=== PATIENT | female | born 1965 | race Caucasian/White ===

== ENCOUNTER → 2021-02-23 14:42 | Outpatient (BNVA) | payer OTHER, SELFPAY | PROVIDERS: PCP Internal Medicine; Visit Provider Orthopaedic Surgery | DX: M17.11 Unilateral primary osteoarthritis, right knee (principal); Z96.652 Presence of left artificial knee joint; Z88.0 Allergy status to penicillin; Z88.2 Allergy status to sulfonamides; Z88.8 Allergy status to other drugs, medicaments and biological substances; Z91.040 Latex allergy status; Z91.011 Allergy to milk products | CPT/HCPCS: 20610; J1100 ==

== ENCOUNTER → 2021-02-26 14:59 | Outpatient (BNVA) | payer OTHER, SELFPAY | PROVIDERS: PCP Internal Medicine; Visit Provider Surgery Vascular Surgery ==

== ENCOUNTER 2021-03-18 12:57 | Outpatient (REF) | payer OTHER, SELFPAY ==
--- NOTE | ~2021-03-18 | US_ITS ---
EXAMINATION: US VENOUS ULTRASOUND WITH DOPPLER LOWER EXTREMITY, BILATERAL CLINICAL INFORMATION: This is a 55-year-old female with venous insufficiency and varicose veins COMPARISON: None. TECHNIQUE: Color flow triplex imaging and compression Doppler was performed to evaluate both the deep and the superficial systems bilaterally. To evaluate the superficial system, the examination was performed in the upright position. Color-flow Doppler ultrasound and compression ultrasound were utilized. In addition, maneuvers were utilized to demonstrate reflux. FINDINGS: 1. DEEP VENOUS ULTRASOUND OF THE RIGHT LOWER EXTREMITY: Common Femoral Vein: Compressible, normal respiratory variation and augmented flow. Femoral vein: Compressible, normal color flow and augmentation. Popliteal Vein: Compressible, normal augmentation. Deep Reflux: There is no evidence of reflux in the deep system in either the common femoral vein or the popliteal vein. . There is no evidence of a Solares's cyst. 2. SUPERFICIAL ULTRASOUND WITH DOPPLER OF RIGHT LOWER EXTREMITY GREAT SAPHENOUS VEIN: Saphenofemoral junction: 1.2 cm. The reflux time is 1848 ms per Mid thigh: 0.4 cm. There is no reflux. Above knee: 0.3 cm. There is no reflux. Below knee: 0.4 cm. The reflux time is 1532 ms Mid calf: 0.3 cm. There is no reflux. Ankle: 0.3 cm. There is no reflux. GSV REFLUX: There is reflux seen at the saphenofemoral junction. DUPLICATED GREAT SAPHENOUS VEIN: There is a duplicated lateral great saphenous vein measuring 1.5 cm at the junction with the reflux time of 1948 ms. At the mid thigh measures 0.3 cm without reflux. SMALL SAPHENOUS VEIN: Upper: 0.4 cm Lower: 0.3 cm SSV REFLUX: No evidence of reflux. VEIN OF GIACOMINI: None Imaged. PERFORATORS: There are 0.3 cm distal thigh branch associate teller without reflux VARICOSITIES: There is 0.9 cm anterior varicose veins with 908 ms of reflux. There are 0.4 cm varicose veins in the proximal thigh without reflux. There is 0.4 cm proximal calf varicose veins with reflux time of 2152 ms. 3. DEEP VENOUS ULTRASOUND OF THE LEFT LOWER EXTREMITY: Common Femoral Vein: There is a patent common femoral vein with deep reflux of 1003 to 60 milliseconds. Femoral vein: Compressible, normal color flow and augmentation. Popliteal Vein: Compressible, normal augmentation. Deep Reflux: There is reflux in the common femoral vein but not below. There is no evidence of a Solares's cyst. 4. SUPERFICIAL ULTRASOUND WITH DOPPLER OF LEFT LOWER EXTREMITY GREAT SAPHENOUS VEIN: Saphenofemoral junction: 1.0 cm. The reflux time is 2708 ms. Mid thigh: 0.5 cm. There is no reflux. Above knee: 0.4 cm. There is no reflux. Below knee: 0.2 cm. There is no reflux. Mid calf: 0.3 cm. The reflux time is 1460 ms Ankle: 0.2 cm. The reflux time is 564 ms GSV REFLUX: No evidence of reflux. DUPLICATED GREAT SAPHENOUS VEIN: None SMALL SAPHENOUS VEIN: Upper: 0.1 cm Lower: 0.4 cm SSV REFLUX: There is a short segment of mid calf reflux but not at the junction. VEIN OF GIACOMINI: None Imaged. PERFORATORS: There are 0.3 and 0.4 cm perforators present without reflux. VARICOSITIES: There is a 1.7 cm anterior lateral thigh varicose vein with reflux of 2400 ms. There are 0.4 cm distal thigh varicose veins without reflux. There are 0.4 cm varicose veins in the mid calf without reflux. US/US venous duplex LE BI IMPRESSION: 1. There is a patent right great saphenous vein with reflux at the saphenofemoral junction. 2. There is a duplicated right lateral great saphenous vein measure 1.5 cm with reflux at the junction. 3. There is a patent right small saphenous vein without reflux. 4. There are varicose veins in the right leg with reflux. 5. There is a patent left great saphenous vein with reflux at the saphenofemoral junction. 6. There is a patent left small saphenous vein without reflux at the junction. 7. There are varicose veins in the left leg with reflux.
== END 2021-03-18 12:58 | disposition home or self-care (01) ==
LOC: HO.US 12:57
PROVIDERS: PCP Internal Medicine; Visit Provider Surgery Vascular Surgery
DX: I83.893 Varicose veins of bilateral lower extremities with other complications (principal)
CPT/HCPCS: 93970

== ENCOUNTER → 2021-03-24 15:32 | Outpatient (BNVA) | payer OTHER, SELFPAY | PROVIDERS: PCP Internal Medicine; Visit Provider Surgery Vascular Surgery ==

== ENCOUNTER → 2021-05-01 07:27 | Outpatient (BNVA) | payer OTHER, SELFPAY | PROVIDERS: PCP Internal Medicine; Visit Provider Surgery Vascular Surgery | DX: I83.12 Varicose veins of left lower extremity with inflammation (principal) | CPT/HCPCS: 36475 ==

== ENCOUNTER 2021-05-04 10:24 | Outpatient (REF) | payer OTHER, SELFPAY ==
--- NOTE | ~2021-05-04 | US_ITS ---
EXAMINATION: US VENOUS ULTRASOUND WITH DOPPLER LOWER EXTREMITY, LEFT CLINICAL INFORMATION: Status post left RFA, rule out DVT COMPARISON: None TECHNIQUE: Ultrasound of the deep veins is performed from the hip to the calf with compression sonography and color and pulse Doppler assessment. Spectral analysis with color-flow imaging is performed. FINDINGS: There is normal venous compression and respiratory variation and augmented flow. The visualized common femoral vein, superficial femoral vein, profunda femoral vein, popliteal vein, and the trifurcation region shows no evidence of deep venous thrombosis. There is no significant popliteal fossa cyst. While the saphenofemoral junction is patent there is possible hypoechoic thrombus centrally within the great saphenous vein approximately 1.5 cm from its confluence with the common femoral. If the patient's symptoms persist, followup ultrasound in 5 days 7 days might be of value to exclude proximal propagation from a non-visualized calf vein. US/US venous duplex LE LT IMPRESSION: No DVT demonstrated in the left lower extremity. Possible hypoechoic thrombus within the great saphenous vein.
== END 2021-05-04 10:25 | disposition home or self-care (01) ==
LOC: HO.US 10:24
PROVIDERS: PCP Internal Medicine; Visit Provider Surgery Vascular Surgery
DX: M79.605 Pain in left leg (principal)
CPT/HCPCS: 93971

== ENCOUNTER → 2021-05-06 10:53 | Outpatient (BNVA) | payer OTHER, SELFPAY | PROVIDERS: PCP Internal Medicine; Visit Provider Surgery Vascular Surgery ==

== ENCOUNTER → 2021-05-18 14:31 | Outpatient (BNVA) | payer OTHER, SELFPAY | PROVIDERS: Visit Provider Orthopaedic Surgery ==

== ENCOUNTER → 2021-05-21 15:29 | Outpatient (BNVA) | payer OTHER, SELFPAY | PROVIDERS: PCP Internal Medicine; Visit Provider Surgery Vascular Surgery ==

== ENCOUNTER 2021-06-15 09:33 | Day surgery (SDC) | payer OTHER, SELFPAY ==
[2021-06-08 13:49] VITALS: BMI 38.7
[2021-06-15] VITALS (7 sets, daily range): BP systolic 128–154; BP diastolic 74–89; PULSE 67–86; RESP 12–17; TEMP 36.1–36.7; O2SAT 93–100
--- NOTE | 2021-06-15 07:33 | MHC.SHP ---
Pre-Procedural Eval Section A Date of Service: 06/15/21 The patient is an INPATIENT: No The History & Physical has been completed within 30 days and I have reviewed it.: Yes Section B Chief Complaint: varicose veins of left lower extremity Allergies: Allergies Allergy/AdvReac Type Severity Reaction Status Date / Time Influenza Virus Vaccines Allergy Severe Hives Verified 06/08/21 13:48 latex [LATEX] Allergy Intermediate RASH Verified 05/21/21 15:42 Penicillins [PENICILLINS] Allergy Intermediate RASH Verified 05/21/21 15:42 Sulfa (Sulfonamide Allergy Intermediate RASH, hives Verified 05/21/21 15:42 Antibiotics) [SULFA (SULFONAMIDE ANTIBIOTICS)] sulfite Allergy Intermediate Hives Verified 06/08/21 13:44 epinephrine [EPINEPHRINE] AdvReac Intermediate w/novacaine Verified 06/08/21 13:44 (for dental work)-vomiting lactose AdvReac Intermediate sinus Verified 06/08/21 13:44 infection Plan I have reviewed the history and physical and performed a pertinent physical examination on my patient. No changes have occurred unless specified.
--- NOTE | 2021-06-15 08:52 | P.CONAN_ITS ---
[facility] Active Problems Active Problems: All Active Problems (Updated 06/08/21 @ 13:47 by Urmila zamorano RN) Anaphylaxis (Acute) Immunization counseling (Acute) Arthritis of right knee (Acute) Varicose veins of left lower extremity with inflammation (Acute) Past Medical History Medical History Anesthesia complication Arthritis COVID-19 vaccine series completed GERD (gastroesophageal reflux disease) HTN (hypertension) Surgical History Surgical History History of esophagogastroduodenoscopy (EGD) History of hysterectomy History of left knee replacement Hx laparoscopic cholecystectomy History of Problems with Anesthesia: No Social History Social History Are you a primary neonatal critical care nurse to a significant other at home: No Do you presently have visiting nurse or other home services: No Patient Tobacco Use Status: Former Tobacco user Quit Date: 1984 Tobacco use type: Cigarette Use of substances other than those prescribed or required for medical reasons: No Have you been hit, kicked, punched, or otherwise hurt by someone within the past year? If so, by whom?: No Are you DNR?: No Advance Directives: No Advance Directives Information Provided: Yes (informational brochure mailed) Advance Directives on File: No Recently lost weight without trying: No Eating poorly because of decreased appetite: No Nutrition Risks: No Nutritional Risk Patient : No FDLMP: N/A Poor oral hygiene: No Current occupational status: employed Current occupation: rt handed Meds Allergies Allergy/AdvReac Type Severity Reaction Status Date / Time Influenza Virus Vaccines Allergy Severe Hives Verified 06/15/21 11:05 latex [LATEX] Allergy Intermediate RASH Verified 06/15/21 11:05 Penicillins [PENICILLINS] Allergy Intermediate RASH Verified 06/15/21 11:05 Sulfa (Sulfonamide Allergy Intermediate RASH, hives Verified 06/15/21 11:05 Antibiotics) [SULFA (SULFONAMIDE ANTIBIOTICS)] sulfite Allergy Intermediate Hives Verified 06/15/21 11:05 epinephrine [EPINEPHRINE] AdvReac Intermediate w/novacaine Verified 06/15/21 11:05 (for dental work)-vomiting lactose AdvReac Intermediate sinus Verified 06/15/21 11:05 infection Active Medications: Current Medications Lactated Ringer's (Lr) 1,000 mls @ 50 mls/hr IVCONT .Q20H JAMIE Home Medications Medication Instructions Recorded Confirmed Last Taken Type cetirizine 5 mg tablet 5 mg PO DAILY 06/08/21 06/08/21 Unknown History multivitamin 1 tab PO DAILY 06/08/21 06/08/21 Unknown History Exam Exam Date and Time: June 15, 2021 0852 Height,Weight and Vital Signs: Height 5 ft 5 in Weight 105.687 kg Airway Mallampati Class: II TM Dist: >3cm Neck ROM: Full Loose/Missing/Broken Teeth: No Heart: RRR Lungs: CTA Assessment and Plan Assessment Anesthesia Assessment: Anesthesia Plan Discussed and Chart Reviewed Final Anesthetic Review History of Problems with Anesthesia: No NPO: Yes ASA Class: II Final Preanesthetic Review: Meds/Allgs Chart Reviewed, Consent Obtained/Reviewed and Anes Risks/Benef Reviewed Patient Risk: Low Procedure Risk: Low Anesthetic Plan Anesthetic Plan: GA Disposition: Standard PACU
[2021-06-15] MEDS: Lactated Ringers 1,000 ML 50 ML IVCONT (10:55)
[2021-06-15] MEDS: vancomycin HCL 1,500 MG in 0.9 % Sodium Chloride 500 ML 333.33 MG IV (10:57)
--- NOTE | 2021-06-15 12:53 | P.OP_ITS ---
Operative Note Operative Note Date of Service: 06/15/21 Narrative: Diagnosis: Left Leg varicose veins with inflammation Procedure: 1. Left leg Microphlebectomy (27) 2. Ligation of left leg venous cluster Surgeon: Tony Gardner M.D. Anesthesia: General Specimen: 1 Drains: 0 Estimated blood loss: 100 ml Varicose veins were marked in the standing position on the left leg and the patient was then placed in the supine position. The left lower extremity was prepared and draped to allow knee flexion in the sterile field. The patient had large superficial varicose veins with significant symptoms of pain. It was therefore determined to perform microphlebectomies of the clusters of varicose veins. The patient had bulging varicose veins which were previously marked in the standing position. A small stab incision was made longitudinally directly overlying the varicose vein in the calf and the varicose vein was grasped with a hemostat aided by a vein hook. It was then dissected as far proximally and distally as possible and avulsed. A total of 27 stab incisions were made and the procedure of stab phlebectomies was repeated 27 times. There was a large cluster of varicosities in the anterior aspect of the thigh. The base was identified and ligated with a 2 0 poly Sorb suture. Residual varicosities were removed. Hemostasis was checked and stab incision sites were closed with steri-strips and sterile dressing was given with gauze and krilex wrap followed by an fabio ba ndage. There were no complications and blood loss was minimal. Post-Op instructions were given and a follow-up appointment was recommended.
[2021-06-15] MEDS: Acetaminophen 325 MG TABLET 650 MG PO (14:02)
== END 2021-06-15 14:53 | disposition home or self-care (01) ==
PROVIDERS: PCP Internal Medicine; Visit Provider Surgery Vascular Surgery
PROC: (CPT 37766; principal; 2021-06-15 11:20)
DX: I83.12 Varicose veins of left lower extremity with inflammation (principal); M79.89 Other specified soft tissue disorders; I10 Essential (primary) hypertension; K21.9 Gastro-esophageal reflux disease without esophagitis; Z91.040 Latex allergy status; Z88.0 Allergy status to penicillin; Z88.2 Allergy status to sulfonamides
CPT/HCPCS: 37766; 37785; 88304; J1100; J2250; J2405; J3010; J3370

== ENCOUNTER → 2021-06-30 09:17 | Outpatient (BNVA) | payer OTHER, SELFPAY | PROVIDERS: PCP Internal Medicine; Visit Provider Surgery Vascular Surgery ==

== ENCOUNTER → 2021-07-06 14:44 | Outpatient (BNVA) | payer OTHER, SELFPAY | PROVIDERS: Visit Provider Orthopaedic Surgery | DX: M17.11 Unilateral primary osteoarthritis, right knee (principal) | CPT/HCPCS: 20610; J1100 ==

== ENCOUNTER → 2021-12-03 15:39 | Outpatient (BNVA) | payer OTHER, SELFPAY | PROVIDERS: PCP Obstetrics & Gynecology; Visit Provider Orthopaedic Surgery | DX: Z01.818 Encounter for other preprocedural examination (principal); M17.11 Unilateral primary osteoarthritis, right knee | CPT/HCPCS: 20610; J1100 ==

== ENCOUNTER 2022-05-20 12:33 | Outpatient (REF) | payer OTHER, SELFPAY ==
--- NOTE | ~2022-05-20 | XR_ITS ---
EXAMINATION: XR KNEE, RIGHT XR KNEE AP STANDING, BILATERAL CLINICAL INFORMATION: Pain. COMPARISON: 08/03/2019. TECHNIQUE: AP standing view of both knees. [place] and lateral views of the right knee. FINDINGS: AP standing view of both knees demonstrates severe degenerative change of the medial joint space compartment of the right knee with some marginal sclerosis. Patient is status post medial joint space hemiarthroplasty of the left knee. AP and sunrise views of the right knee demonstrate severe degenerative change of the patellofemoral joint with loss of joint space and marginal spurring and sclerosis. There is a small right knee effusion. XR/XR knee RT 2V IMPRESSION: Severe medial joint space degenerative change and patellofemoral joint degenerative change with small right knee effusion.
--- NOTE | ~2022-05-20 | XR_ITS ---
EXAMINATION: XR KNEE, RIGHT XR KNEE AP STANDING, BILATERAL CLINICAL INFORMATION: Pain. COMPARISON: 08/03/2019. TECHNIQUE: AP standing view of both knees. [place] and lateral views of the right knee. FINDINGS: AP standing view of both knees demonstrates severe degenerative change of the medial joint space compartment of the right knee with some marginal sclerosis. Patient is status post medial joint space hemiarthroplasty of the left knee. AP and sunrise views of the right knee demonstrate severe degenerative change of the patellofemoral joint with loss of joint space and marginal spurring and sclerosis. There is a small right knee effusion. XR/XR knee standing BI IMPRESSION: Severe medial joint space degenerative change and patellofemoral joint degenerative change with small right knee effusion.
== END 2022-05-20 12:34 | disposition home or self-care (01) ==
LOC: HO.HOSX 12:33
PROVIDERS: Visit Provider Physician Assistant
DX: M25.561 Pain in right knee (principal); M25.562 Pain in left knee
CPT/HCPCS: 73560; 73565

== ENCOUNTER 2022-05-25 06:07 | Inpatient (IN) | payer OTHER, SELFPAY ==
[2022-05-18 12:10] VITALS: BP 137/89; PULSE 92; RESP 20; O2SAT 98; BMI 39.5
--- NOTE | 2022-05-18 12:22 | HO.ANESPROP2 ---
Documented by User: Karen Moulton NP 05/18/22 12:47 HPI - Anesthesia Eval Consult details Narrative: 56yo F for Right Knee Replacement Total PCP cleared Declines spinal. Discussed spinal vs GA, and block PMFSH Active Problems Active Problems: All Active Problems (Updated 05/18/22 @ 12:21 by Borok Clark RN) Anaphylaxis (Acute) Immunization counseling (Acute) Arthritis of right knee (Acute) Varicose veins of left lower extremity with inflammation (Acute) Varicose veins of right lower extremity with inflammation (Acute) Past Medical History Medical History Anesthesia complication Arthritis COVID-19 vaccine series completed GERD (gastroesophageal reflux disease) HTN (hypertension) Migraines Obesity Family History Family history of problems with anesthesia: No Surgical History Surgical History H/O vein stripping (06/15/21) History of esophagogastroduodenoscopy (EGD) History of hysterectomy History of left knee replacement Hx laparoscopic cholecystectomy History of Problems with Anesthesia: Yes (Pt reports apnea after EGD and owen. No problems after phlebectomy with GA 06/2021) Social History Social History Household Members: Significant Other and Family Housing: House Are you a primary daycare teacher to a significant other at home: No Do you presently have visiting nurse or other home services: No Patient Tobacco Use Status: Former Tobacco user Quit Date: 1985 Tobacco use type: Cigarette Second Hand Smoke Exposure: No Use of substances other than those prescribed or required for medical reasons: No Currently Displaying Signs/Symptoms of Drug Intoxication Withdrawal: No Have you been hit, kicked, punched, or otherwise hurt by someone within the past year? If so, by whom?: No Do you feel safe in your current relationship?: Yes Is there a partner from a previous relationship who is making you feel unsafe now?: No Are you made to feel afraid or neglected: No Are you DNR?: No Advance Directives: No Advance Directives Information Provided: Yes (Yes to fill out and bring DOS) Advance Directives on File: No Do you have thoughts of harming others: None Do you have a plan to hurt others: No Plan Recently lost weight without trying: No Eating poorly because of decreased appetite: No Nutrition Risks: No Nutritional Risk Patient : No FDLMP: Hysterectomy : No Poor oral hygiene: No Current occupational status: employed Current occupation: rt handed Narrative Narrative: No recent illness No CP/SOB within limits of knee pain Meds Allergies Allergy/AdvReac Type Severity Reaction Status Date / Time Influenza Virus Vaccines Allergy Severe Hives Verified 05/20/22 13:29 latex [LATEX] Allergy Intermediate RASH Verified 05/20/22 13:29 Penicillins [PENICILLINS] Allergy Intermediate RASH Verified 05/20/22 13:29 Sulfa (Sulfonamide Allergy Intermediate RASH, hives Verified 05/20/22 13:29 Antibiotics) [SULFA (SULFONAMIDE ANTIBIOTICS)] sulfite Allergy Intermediate Hives Verified 05/20/22 13:29 epinephrine [EPINEPHRINE] AdvReac Intermediate w/novacaine Verified 05/20/22 13:29 (for dental work)-vomiting lactose AdvReac Intermediate sinus Verified 05/20/22 13:29 infection Home Medications Medication Instructions Recorded Confirmed Last Taken Type multivitamin 1 tab PO DAILY 06/08/21 05/18/22 05/18/22 History cetirizine 5 mg tablet 5 mg PO DAILY 05/18/22 05/18/22 05/24/22 History Exam Exam Date and Time: May 18, 2022 1222 Height,Weight and Vital Signs: Height 5 ft 4.5 in Weight 106.141 kg Last Vital Signs Pulse 92 05/18/22 12:10 Resp 20 05/18/22 12:10 BP 137/89 05/18/22 12:10 Pulse Ox 98 05/18/22 12:10 O2 Del Method 05/18/22 12:10 Pertinent Lab Results Pertinent Lab Results: LABS from outside facility WNL 05/2022 Narrative Narrative: EKG 05/2022 NSR Airway Mallampati Class: I TM Dist: >3cm Neck ROM: Full Loose/Missing/Broken Teeth: No (Capped front upper #9) Heart: RRR Lungs: CTAB Assessment and Plan Assessment Anesthesia Assessment: Anesthesia Plan Discussed and PAT Visit Final Anesthetic Review Family History of Problems with Anesthesia: No History of Problems with Anesthesia: Yes (Pt reports apnea after EGD and owen. No problems after phlebectomy with GA 06/2021) Documented by User: Bib Dewitt MD 05/25/22 17:48 HPI - Anesthesia Eval Consult details Narrative: 56yo F for Right Knee Replacement [facility] Past Medical History Medical History Anesthesia complication Arthritis COVID-19 vaccine series completed GERD (gastroesophageal reflux disease) HTN (hypertension) Migraines Obesity Surgical History Surgical History H/O vein stripping (06/15/21) History of esophagogastroduodenoscopy (EGD) History of hysterectomy History of left knee replacement Hx laparoscopic cholecystectomy Social History Social History Household Members: Significant Other and Family Housing: House Are you a primary daycare teacher to a significant other at home: No Do you presently have visiting nurse or other home services: No Patient Tobacco Use Status: Former Tobacco user Quit Date: 1985 Tobacco use type: Cigarette Second Hand Smoke Exposure: No Use of substances other than those prescribed or required for medical reasons: No Currently Displaying Signs/Symptoms of Drug Intoxication Withdrawal: No Have you been hit, kicked, punched, or otherwise hurt by someone within the past year? If so, by whom?: No Do you feel safe in your current relationship?: Yes Is there a partner from a previous relationship who is making you feel unsafe now?: No Are you made to feel afraid or neglected: No Are you DNR?: No Advance Directives: No Advance Directives Information Provided: Yes (Yes to fill out and bring DOS) Advance Directives on File: No Do you have thoughts of harming others: None Do you have a plan to hurt others: No Plan Recently lost weight without trying: No Eating poorly because of decreased appetite: No Nutrition Risks: No Nutritional Risk Patient : No FDLMP: Hysterectomy : No Poor oral hygiene: No Current occupational status: employed Current occupation: rt handed Meds Allergies Allergy/AdvReac Type Severity Reaction Status Date / Time Influenza Virus Vaccines Allergy Severe Hives Verified 05/20/22 13:29 latex [LATEX] Allergy Intermediate RASH Verified 05/20/22 13:29 Penicillins [PENICILLINS] Allergy Intermediate RASH Verified 05/20/22 13:29 Sulfa (Sulfonamide Allergy Intermediate RASH, hives Verified 05/20/22 13:29 Antibiotics) [SULFA (SULFONAMIDE ANTIBIOTICS)] sulfite Allergy Intermediate Hives Verified 05/20/22 13:29 epinephrine [EPINEPHRINE] AdvReac Intermediate w/novacaine Verified 05/20/22 13:29 (for dental work)-vomiting lactose AdvReac Intermediate sinus Verified 05/20/22 13:29 infection Home Medications Medication Instructions Recorded Confirmed Last Taken Type multivitamin 1 tab PO DAILY 06/08/21 05/18/22 05/18/22 History cetirizine 5 mg tablet 5 mg PO DAILY 05/18/22 05/18/22 05/24/22 History Exam Airway Loose/Missing/Broken Teeth: Yes (Capped front upper #9) Assessment and Plan Assessment Anesthesia Assessment: Chart Reviewed Final Anesthetic Review NPO: Yes ASA Class: III Final Preanesthetic Review: Meds/Allgs Chart Reviewed, Consent Obtained/Reviewed and Anes Risks/Benef Reviewed Patient Risk: Intermediate Procedure Risk: Intermediate Anesthetic Plan Anesthetic Plan: Spinal and Regional Block Disposition: Standard PACU
[2022-05-18 16:41] LABS: MRSA Nasal PCR NEGATIVE (Negative); SA Nasal PCR NEGATIVE (Negative)
[2022-05-25] VITALS (13 sets, daily range): BP systolic 119–142; BP diastolic 63–93; PULSE 59–92; RESP 13–19; TEMP 36–36.7; O2SAT 94–99; BMI 42.7
--- NOTE | ~2022-05-25 | XR_ITS ---
EXAMINATION: XR KNEE, RIGHT CLINICAL INFORMATION: Status post right knee TKA. COMPARISON: None TECHNIQUE: Four views of the right knee. FINDINGS: The patient is status post right knee arthroplasty showing good anatomic alignment and no evidence for hardware malfunction. Mild intra-articular and subcutaneous soft tissue air is noted. Multilevel anterior skin clips are noted. Incidental varices are seen laterally. XR/XR knee RT 2V IMPRESSION: Postoperative changes. No hardware abnormality.
[2022-05-25 06:31] LABS: COVID-19 Test Negative (Negative)
[2022-05-25 06:47] LABS: Hematocrit 39.4 % (37.0-47.0); Hemoglobin 13.5 g/dl (12.0-16.0)
--- NOTE | 2022-05-25 06:49 | ECG_ITS ---
Test Reason : preop Blood Pressure : / mmHG Vent. 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
[2022-05-25] MEDS: Lactated Ringers 1,000 ML 100 ML IVCONT ×4 (07:08→19:48)
--- NOTE | 2022-05-25 07:13 | PHA.MEDREC ---
Pharmacy Consult ? Medication Reconciliation Pharmacy has completed the medication reconciliation. Reviewed med rec done by nursing
--- NOTE | 2022-05-25 07:33 | MHC.SHP ---
Pre-Procedural Eval Section A Date of Service: 05/25/22 The patient is an INPATIENT: No Changes since office visit: Yes Patient answered all questions; No Cold of Flu in the past 2 weeks, No New Medical Problems and No Changes in Medication The History & Physical has been completed within 30 days and I have reviewed it.: Yes Section B Chief Complaint: Unilateral primary osteoarthritis, right knee Allergies: Allergies Allergy/AdvReac Type Severity Reaction Status Date / Time Influenza Virus Vaccines Allergy Severe Hives Verified 05/20/22 13:29 latex [LATEX] Allergy Intermediate RASH Verified 05/20/22 13:29 Penicillins [PENICILLINS] Allergy Intermediate RASH Verified 05/20/22 13:29 Sulfa (Sulfonamide Allergy Intermediate RASH, hives Verified 05/20/22 13:29 Antibiotics) [SULFA (SULFONAMIDE ANTIBIOTICS)] sulfite Allergy Intermediate Hives Verified 05/20/22 13:29 epinephrine [EPINEPHRINE] AdvReac Intermediate w/novacaine Verified 05/20/22 13:29 (for dental work)-vomiting lactose AdvReac Intermediate sinus Verified 05/20/22 13:29 infection Plan I have reviewed the history and physical and performed a pertinent physical examination on my patient. No changes have occurred unless specified.
--- NOTE | 2022-05-25 09:08 | P.BOP_ITS ---
Brief Operative Note Date of Service: 05/25/22 Pre-op diagnosis: right knee OA Post-op diagnosis: same Procedure: Right TKA Implants: Carolyne Triathalon cruciate retaining posterior stabilized Surgeon: Aurelio Correa MD Anesthesia: regional and spinal Was an Autistic Teacher used for this Procedure?: Yes Autistic Teacher: Digna Harrison Estimated blood loss (mL): 150 IV fluids (mL): 1,000 Pathology: other Condition: stable Disposition: PACU
--- NOTE | 2022-05-25 09:10 | P.OP_ITS ---
Operative Note Operative Note Date of Service: 05/25/22 Narrative: Date of Service: 05/25/22 Pre-op diagnosis: right knee OA Post-op diagnosis: same Procedure: Right TKA Implants: [place] Triathalon cruciate retaining posterior stabilized r/a Surgeon: Aurelio Correa MD Anesthesia: regional and spinal Was an Wastewater Treatment Plant Operator used for this Procedure?: Yes Wastewater Treatment Plant Operator: Digna Harrison Estimated blood loss (mL): 150 IV fluids (mL): 1,000 Pathology: other Condition: stable Disposition: PACU Procedure in detail: The patient was brought to the operating room and prepped and draped in standard sterile fashion. A time-out was called to identify proper site proper procedure proper surgeon and IV antibiotics were administered. 1 g of IV tranexamic acid was administered. I began by making a midline incision to the retinaculum and performed a medial parapatellar arthrotomy. The patella was translated laterally and the knee was flexed up.The medial compartment was eburnated and the patella was defromed . I performed a small medial peel and resected the infrapatellar fat pad. Keota's line was then used to drill my intramedullary femoral guide and my distal femur cut of 12 mm (10 deg flexion contracture) was made in 5 degrees of valgus while protecting the soft tissues. I then measured a # 3 femur and placed my cutting guide and made my anterior posterior and chamfer cuts protecting the soft tissues at all times. Once I was satisfied with my cuts I turned my attention to the tibia. I removed the meniscus medially and laterally and , using an external cutting guide, in line with the tibial crest and the third ray, I made my distal tibial cut in 3 deg slope of while protecting the PCL the posterior soft tissues at all times. An extension block was used to confirm appropriate amount of bony resection. I then sized a #3 tibia and once I was satisfied that there was complete tibial coverage I placed my trial and with the trial femur in place took the knee through range of motion. I was satisfied with the extension and flexion as well as the stability and balance at 0, 30 and 90 degrees. I then turned my attention to the patella where I removed 1 cm from the undersurface of the patella and then trialed a 29a patellar button. Again the knee was taken t hrough range of motion I was satisfied with the tracking. I then returned to the femur and drilled my femoral lug holes and prepared the tibia. A femoral bone plug was placed and the knee was irrigated copiously. I then press fit the patella, tibia and femur in standard fashion. I trialed different inserts until I selected a #9 insert. The final insert was placed and a 3 minutes iodine soak with local TXA was performed. A Werewolf cautery wand was used to maintain hemostasis over the capsule and meniscal beds, the gutters and peripatellar soft tissues. The knee was then closed with a running Quill suture, a 3 0 Vicryl and leatha on the skin. Patient was then placed in sterile dressing and brought to recovery room in stable condition there were no known complications.
[2022-05-25] MEDS: ceFAZolin Sodium/Dextrose,Iso 2 GM/50 ML PIGGYBACK IV (13:27)
[2022-05-25] MEDS: HYDROmorphone HCl 0.5 MG/0.5 ML SYRINGE 0.25 MG IVPUSH ×2 (13:28→17:32)
[2022-05-25] MEDS: oxyCODONE HCl Immed Release 5 MG TABLET PO (15:10)
[2022-05-25] MEDS: oxyCODONE HCl ER 10 MG TAB.ER.12H 20 MG PO (21:02)
[2022-05-25] MEDS: Docusate Sodium 100 MG CAPSULE PO (21:02)
[2022-05-25] MEDS: Acetaminophen 325 MG TABLET 650 MG PO (23:10)
[2022-05-26] VITALS (7 sets, daily range): BP systolic 117–154; BP diastolic 57–81; PULSE 69–89; RESP 18; TEMP 36.4–37.1; O2SAT 97–100
[2022-05-26] MEDS: oxyCODONE HCl Immed Release 5 MG TABLET PO (03:56)
--- NOTE | 2022-05-26 03:56 | PC.NURSE ---
2114; Patient refused bedtime celebrex due to allergy to sulfas. Patient only took 10 mg instead of 20 mg scheduled oxycontin at bedtime. SOLOMON Cruz notified with [employer]
[2022-05-26] MEDS: Lactated Ringers 1,000 ML 100 ML IVCONT (03:57)
[2022-05-26 05:58] LABS: MANUAL DIFF FLAG NO
[2022-05-26 06:05] LABS: Basophils Percent Auto 0.1 % (0-2); Eosinophils Percent Auto 0.1 % (0-4); Hematocrit 32.2 % (37.0-47.0); Hemoglobin 10.9 g/dl (12.0-16.0); Imm Gran Abs Auto 0.04 X10*3/uL (0.00-0.03); Imm Gran Pct Auto 0.4 % (0.0-0.4); Lymphocytes Absolute Auto 1.7 X10*3/uL (1.2-4.9); Lymphocytes Percent Auto 16.9 % (20-40); Mean Corpuscular HGB Conc 33.9 g/dl (31.0-35.0); Mean Corpuscular Hemoglobin 31.2 pg (27.0-33.0); Mean Corpuscular Volume 92.3 fL (80.0-98.0); Monocytes Absolute Auto 1.2 X10*3/uL (0.1-1.2); Monocytes Percent Auto 11.8 % (2-11); Neutrophils Absolute Auto 7.1 x10*3/uL (2.0-8.3); Neutrophils Percent Auto 70.7 % (45-73); Platelet Count 204 X10*3/uL (160-400); Red Blood Count 3.49 X10*6/uL (4.20-5.50); Red Cell Distribution Width 13.1 % (11.0-16.0); White Blood Count 10.1 X10*3/uL (4.8-10.8)
[2022-05-26 06:17] LABS: Anion Gap 13 (12-20); Blood Urea Nitrogen 11 mg/dL (9-16); Calcium 8.5 mg/dL (8.4-10.2); Carbon Dioxide 26 mmol/L (22-29); Chloride 102 mmol/L (96-108); Estimated Glomerular Filt Rate > 60; Glucose Fasting 131 mg/dL (60-99); Sodium 137 mmol/L (135-145)
--- NOTE | 2022-05-26 07:17 | MHC.CM.PN ---
PATIENT CURRENTLY WORKING WITH PHYXSICAL THERAPIST. PER REVIEW OF EVALUATION, PATIENT WILL BENEFIT FROM HOME P.T. SERVICES. [facility] INSURANCE REFERRAL TO [facility]
[2022-05-26] MEDS: Acetaminophen 325 MG TABLET 650 MG PO ×2 (07:19→15:52)
--- NOTE | 2022-05-26 08:21 | MHC.CM.PN ---
PATIENT LIVES WITH SIGNIFICANT OTHER AND HER DAUGHTER. SHE IS COVID VAX X 4. INDEPENDENT WITH ALL ADLS. PLAN IS HOME WITH [facility] SERVICES
--- NOTE | 2022-05-26 09:36 | P.PNOP_ITS ---
Subjective Subjective Date of Service: 05/26/22 Interval history: POD 1 s/p RT TKA no overnight events has some pain with walking and nauseau with medication denies sob, palpitations, cp Physical Exam Vital Signs: Vital Signs: Last Vital Signs Temp 98.4 F 05/26/22 07:56 Pulse 76 05/26/22 07:56 Resp 18 05/26/22 07:56 BP 148/81 H 05/26/22 07:56 Pulse Ox 99 05/26/22 07:56 O2 Del Method 05/26/22 07:56 O2 Flow Rate 2 05/25/22 11:04 BMI result Body Mass Index 42.7 Const: General: cooperative, healthy appearing and no acute distress Resp: Effort & Inspection: normal respiratory effort and able to speak in complete sentences Cardio: Rate: regular rate Peripheral pulses: Peripheral pulses 2+ throughout GI: Palpation (GI): Soft to palpation Skin: General skin exam: no rashes or lesions noted Extrem: Other: incision clean dry and intact. [place] intact. No erythema or effusion. Calf supple nontender. Neurovascularly intact. Procedures Date of Service Date of Service: 05/26/22 Progress Note: A&P Assessment and plan (1) History of total right knee replacement: Status: Acute Assessment and Plan: * Continue pain mgmnt * Begin Lovenox for dvt ppx * begin PT for RT TKA * Dispo planning-Pending PT eval, pain mgmnt Time Spent With Patient Time: Total time spent is greater than 50% in coordination of care (as documented) at patient's floor/unit and/or counseling patient: Quality Stroke Does the patient have a stroke diagnosis?: No VTE Prior VTE?: No VTE Risk Level:: Surgical - very high VTE Device Contraindication: N/A - Device Ordered VTE Drug Contraindication: N/A - Med Ordered
[2022-05-26] MEDS: Docusate Sodium 100 MG CAPSULE PO ×2 (10:57→21:10)
[2022-05-26] MEDS: oxyCODONE HCl ER 10 MG TAB.ER.12H PO ×2 (10:57→21:11)
[2022-05-26] MEDS: Enoxaparin Sodium 40 MG/0.4 ML SYRINGE SUBCUT (10:58)
--- NOTE | 2022-05-26 11:54 | MHC.CM.PN ---
Addendum entered by Rachel Simmons RN 05/27/22 09:24: [facility] Original Note: [facility] WITH STAFF SHORTAGE. [facility] IS REVIEWING FOR AVAILABILITY. CURRENTLY MANAGING PAIN DC LIKELY TUESDAY
[2022-05-26] MEDS: HYDROmorphone HCl 2 MG TABLET PO (12:49)
--- NOTE | 2022-05-26 14:01 | HO.POSTANES ---
Post Anesthesia Evaluation Post Anesthesia Evaluation Vital Signs: Vital Signs Temp Pulse Resp BP Pulse Ox O2 Del Method 05/26/22 13:45 76 149/70 H 98 05/26/22 11:43 97.6 F 76 18 149/70 H 98 Room Air 05/26/22 07:56 98.4 F 76 18 148/81 H 99 Room Air 05/26/22 07:29 89 117/57 L 97 05/26/22 03:44 97.8 F 89 18 117/57 L 97 Room Air Anesthesia: Spinal and Nerve Block Mental Status: Awake Pain Control: Satisfactory (mild to moderate) Nausea/Vomiting: Mild Hydration: Adequate Anesthesia-Related Issues: No Anes. Related Issues
[2022-05-26] MEDS: 0.9 % Sodium Chloride Flush 3 ML SYRINGE IVFLUSH (21:12)
[2022-05-27] VITALS (7 sets, daily range): BP systolic 127–177; BP diastolic 65–100; PULSE 84–96; RESP 16–17; TEMP 36.4–36.8; O2SAT 93–97
[2022-05-27] MEDS: Acetaminophen 325 MG TABLET 650 MG PO ×2 (02:42→10:16)
[2022-05-27] MEDS: 0.9 % Sodium Chloride Flush 3 ML SYRINGE IVFLUSH (07:31)
[2022-05-27] MEDS: Enoxaparin Sodium 40 MG/0.4 ML SYRINGE SUBCUT (07:31)
[2022-05-27] MEDS: oxyCODONE HCl ER 10 MG TAB.ER.12H PO (07:31)
[2022-05-27] MEDS: Docusate Sodium 100 MG CAPSULE PO (07:31)
--- NOTE | 2022-05-27 10:08 | P.CDIC_ITS ---
CDI Concurrent Query Documentation Clarification: PHYSICIAN'S DOCUMENTATION REQUEST Date of Query: 05/27/22 1008 Patient Name: Jes Meek Admit Date: 05/25/22 Dear Doctor, A review of the medical record indicates additional documentation may be needed. Please review below and update the documentation accordingly. Clinical Indicators: Is there a diagnosis that correlates with the findings below: Risk Factors/Clinical Indicators/Treatments BMI: 42.7 HEIGHT: 5ft 4in WEIGHT: 114.6kg If possible, please provide an associated diagnosis related to the abnormal BMI, such as: For a BMI >= 40: * Severe or Morbid Obesity * With alveolar hypoventilation * Without alveolar hypoventilation Or: * BMI is not significant * Other (please specify) * Unable to determine Use of terms such as suspected, likely, concern for, or probable (associated with a specific diagnosis that is being evaluated, monitored, or treated as if it exists) are acceptable and can be coded in the inpatient setting, when documented at the time of discharge. Thank you, Doris Land MS, RN, CCRN Extension: [phone] Please use your independent medical judgment in providing your response. THIS QUERY IS PART OF THE PERMANENT MEDICAL RECORD Provider Response: Morbid Obesity
[2022-05-27] MEDS: HYDROmorphone HCl 2 MG TABLET PO (12:49)
--- NOTE | 2022-05-27 14:39 | P.F2F_ITS ---
Service Date Service Date: 05/27/22 Encounter Date of encounter: 05/27/22 Reasons for Services Signs and symptoms assessed: right knee pain , weakness and poor balance Reason for physical therapy: home safety and mobility, therapeutic exercises, restore joint function, gait/transfer training, ADL training and energy conservation Reason for occupational therapy: home safety and mobility, therapeutic exercises, restore joint function, gait/transfer training, ADL training and energy conservation Overseeing Care: Aurelio Correa Homebound: Leaving the home is medically contraindicated at this time without the asist of a device and/or another person due th the listed conditions above and below. Reason homebound: unsteady gait / fall risk, pain with ambulation, poor balance / fall risk and unable to drive Homebound supporting statement: Pt. is considered home bound due to recent surgery. Unable to drive, poor balance, poor gait mechanics. Certification: Based on the above findings, I certify that this patient is confined to the home and needs intermittent mcfp care, physical therapy and/or speech therapy, or continues to need occupational therapy. The patient is under my care, and I have initiated the establishment of the plan of care. The patient will be followed by a physician who will periodically review the plan of care.
--- NOTE | 2022-05-27 14:40 | P.DS_ITS ---
DS: Providers Provider Date of Service: 05/27/22 Date of admission: 05/25/22 06:07 Primary care physician: Brent Merrill MD DS: Diagnosis Discharge Diagnosis (1) History of total right knee replacement: Status: Acute DS: Summary Hospital Course Hospital Course: The patient underwent a successful RIght total knee arthroplasty, was transferred to PACU and then to the floor to recover. During their stay, their vitals were stable, afebrile at 97.9. Labs were unremarkable, H/H 10.9/32.2. POD 1 she was started on Lovenox for DVT ppx, they also received PT services twice a day. Prior to discharge, their dressing was change, incision clean dry and intact, new Aquacel dressing applied and the plan was to be discharged home with [facility]. Time Spent with Patient Time attestation: Total time spent providing and/or coordinating discharge services: Discharge coordination time: Less than 30 minutes Quality: Safe Use of Opioids Does Pt have an Active Cancer Diagnosis on the Problem List?: No Quality: Stroke Does the patient have a stroke diagnosis?: No Physical Exam Vital Signs: Vital Signs: Last Vital Signs Temp 97.9 F 05/27/22 12:00 Pulse 84 05/27/22 14:01 Resp 16 05/27/22 12:00 BP 140/82 H 05/27/22 14:01 Pulse Ox 96 05/27/22 14:01 O2 Del Method 05/27/22 12:00 O2 Flow Rate 2 05/25/22 11:04 BMI result Body Mass Index 42.7 Const: General: cooperative, healthy appearing and no acute distress Resp: Effort & Inspection: normal respiratory effort and able to speak in complete sentences Cardio: Rate: regular rate Peripheral pulses: Peripheral pulses 2+ throughout GI: Palpation (GI): Soft to palpation Skin: General skin exam: no rashes or lesions noted Extrem: Other: incision clean dry and intact. [place] intact. No erythema or joint effusion. Calf supple nontender. Neurovascularly intact. DS: Data Data Completed and Pending Completed studies during hospitalization [Text1]: Pending at discharge 05/25/22 08:56 Surgical [PTH] Routine Discharge Plan Discharge Anticipated Discharge Date/Time: 05/27/22 14:32 Patient Disposition: Home Health Service Discharge Diagnosis: RT TKA Referrals: Lisa [Outside] - 1 Week Digna Harrison PA-C [Physician Straight Truck Driver] - 2 Weeks (06/10/22 1:00 [facility] Digna Harrison PA-C) Brent Merrill MD [Primary Care Provider] - 1 Week Discharge Medications: New hydromorphone 2 mg Tablet 2 mg PO Q4H PRN (Reason: Pain, Moderate (Pain Scale 4-6) 7 Days Qty: 42 0RF Rx Instructions: Partial Fill upon patient request. docusate sodium 100 mg Capsule 100 mg PO BID 7 Days Qty: 14 0RF enoxaparin 40 mg/0.4 mL Syringe 40 mg subcut Q24H 42 Days Qty: 16.8 0RF ondansetron HCl 4 mg tablet 4 mg PO Q6H PRN (Reason: nausea and vomiting) 7 Days Qty: 21 0RF Continued lisinopril 5 mg tablet 5 mg PO DAILY 90 Days Qty: 90 3RF multivitamin Tablet 1 tab PO DAILY cetirizine 5 mg Tablet 5 mg PO DAILY epinephrine [EpiPen 2-Arash] 0.3 mg/0.3 mL auto-injector 0.3 mg IM Q10M PRN (Reason: anaphylaxis) 1 Days Qty: 2 4RF Label Comments: have not needed to use this med Rx Instructions: for 2 doses acetaminophen 325 mg tablet 650 mg PO Q4-6H PRN (Reason: fever or pain) 30 Days Qty: 240 0RF Discontinued aspirin 325 mg tablet 325 mg PO BID 42 Days Qty: 84 0RF Label Comments: will start after surgery Discharge Orders: Discharge Order (Routine); Ordered 05/27/22 Ordered By: Digna Harrison Diet: Regular diet Activity on Discharge: Use cane or walker Stand Alone Forms: Patient Portal Discharge page Care Plan Goals: Restore function of joint Health Concerns: none Plan of Treatment: Physical Therapy Pain management DVT prophylaxis Assessment: Physical Therapy for Total knee arthroplasty: WBAT, gait training, ROM 0-12, quad strength * Limit stair climbing * No showering, no tub bath-keep dressing clean, dry and intact * No driving x6 weeks * Continue Aspirin twice a day x 6 weeks * Follow up with [facility] in 2 weeks: 06/10/22 @ 1:00pm * --you will also have your first out patient PT eval on the day of your post op appt-so please plan on being in the office that day for an extended period of time.
--- NOTE | 2022-05-27 14:46 | MHC.CM.PN ---
PATIENT AWARE THAT THERE IS A POTENTIAL DEDUCTIBLE OF $148.70 FOR [facility] SERVICES. PATIENT AGREEABLE TO PAY IF THIS DOES OCCUR. [facility] MADE AWARE. DC TODAY FAMILY TO TRANSPORT. RN AWARE OF PLAN.
== END 2022-05-27 17:12 | disposition home health service (06) | DRG 326 ==
LOC: HO.SSSA 06:08 → HO.S3 09:48
PROVIDERS: Physician Assistant; Admitting Provider Orthopaedic Surgery; PCP Internal Medicine; Visit Provider Orthopaedic Surgery
PROC: 0SRC0JA Replacement of Right Knee Joint with Synthetic Substitute, Uncemented, Open Approach (ICD-10-PCS; CPT 27447; principal; 2022-05-25 07:30)
DX: M17.11 Unilateral primary osteoarthritis, right knee (principal); E66.01 Morbid (severe) obesity due to excess calories; Z68.41 Body mass index [BMI] 40.0-44.9, adult; Z20.822 Contact with and (suspected) exposure to COVID-19; Z91.040 Latex allergy status; Z88.0 Allergy status to penicillin; Z88.7 Allergy status to serum and vaccine; Z88.2 Allergy status to sulfonamides; Z88.8 Allergy status to other drugs, medicaments and biological substances; Z79.899 Other long term (current) drug therapy
CPT/HCPCS: 27447; 36415; 73560; 80048; 85014; 85018; 85025; 86850; 86900; 86901; 87635; 87640; 87641; 88305; 88311; 93005; 97110; 97116; 97162; 97530; C1776; J0690; J1100; J1170; J1200; J1650; J2250; J2405; J2795

== ENCOUNTER 2022-08-19 10:40 | Outpatient (REF) | payer OTHER, SELFPAY ==
--- NOTE | ~2022-08-19 | XR_ITS ---
EXAMINATION: XR KNEES, STANDING AP BILATERAL XR KNEE, RIGHT CLINICAL INFORMATION: Knee pain COMPARISON: Standing AP knees 05/20/2022, right knee 05/25/2022 TECHNIQUE: Bilateral standing AP view of the knees is performed. Lateral and axial patella views of the right knee are also obtained. FINDINGS: Right: Status post prior total knee arthroplasty. Hardware intact. No destructive process or osteolysis. No fracture or dislocation. Small to moderate suprapatellar effusion. Axial view patella shows no tilting or definite lateralization Left: Status post prior medial have arthroplasty. Hardware intact. No destructive process or osteolysis. Lateral compartment shows no narrowing or erosive change. XR/XR knee standing BI IMPRESSION: Right: -Status post total knee arthroplasty. Hardware intact. No destructive process or osteolysis. -Small to moderate suprapatellar effusion. Left: -Status post medial hemiarthroplasty. Hardware intact. No destructive process. -Lateral compartment unremarkable.
--- NOTE | ~2022-08-19 | XR_ITS ---
EXAMINATION: XR KNEES, STANDING AP BILATERAL XR KNEE, RIGHT CLINICAL INFORMATION: Knee pain COMPARISON: Standing AP knees 05/20/2022, right knee 05/25/2022 TECHNIQUE: Bilateral standing AP view of the knees is performed. Lateral and axial patella views of the right knee are also obtained. FINDINGS: Right: Status post prior total knee arthroplasty. Hardware intact. No destructive process or osteolysis. No fracture or dislocation. Small to moderate suprapatellar effusion. Axial view patella shows no tilting or definite lateralization Left: Status post prior medial have arthroplasty. Hardware intact. No destructive process or osteolysis. Lateral compartment shows no narrowing or erosive change. XR/XR knee RT 2V IMPRESSION: Right: -Status post total knee arthroplasty. Hardware intact. No destructive process or osteolysis. -Small to moderate suprapatellar effusion. Left: -Status post medial hemiarthroplasty. Hardware intact. No destructive process. -Lateral compartment unremarkable.
== END 2022-08-19 10:41 | disposition home or self-care (01) ==
LOC: HO.HOSX 10:40
PROVIDERS: Visit Provider Orthopaedic Surgery
DX: M25.561 Pain in right knee (principal); Z96.641 Presence of right artificial hip joint
CPT/HCPCS: 73560; 73565

== ENCOUNTER 2023-09-30 09:10 | Outpatient (REF) | payer OTHER, SELFPAY ==
--- NOTE | ~2023-09-30 | XR_ITS ---
Examination: AP bilateral and left knee CLINICAL INFORMATION: Pain COMPARISON: 08/19/2022 bilateral, 08/03/2019 left TECHNIQUE: AP bilateral weightbearing view and left knee lateral and sunrise views. FINDINGS: There is status post total knee replacement on the right and status post medial compartment of left knee replacement with well aligned prosthesis. There are mild degenerative changes in patellofemoral compartment on the left. There is no masses or joint effusion seen. XR/XR knee standing BI IMPRESSION: Well positioned bilateral prosthesis and mild degenerative changes in patellofemoral compartment of the left.
--- NOTE | ~2023-09-30 | XR_ITS ---
Examination: AP bilateral and left knee CLINICAL INFORMATION: Pain COMPARISON: 08/19/2022 bilateral, 08/03/2019 left TECHNIQUE: AP bilateral weightbearing view and left knee lateral and sunrise views. FINDINGS: There is status post total knee replacement on the right and status post medial compartment of left knee replacement with well aligned prosthesis. There are mild degenerative changes in patellofemoral compartment on the left. There is no masses or joint effusion seen. XR/XR knee LT 2V IMPRESSION: Well positioned bilateral prosthesis and mild degenerative changes in patellofemoral compartment of the left.
--- NOTE | ~2023-09-30 | XR_ITS ---
EXAMINATION: XR KNEE, RIGHT CLINICAL INFORMATION: Pain in unspecified knee. COMPARISON: 08/19/2022 TECHNIQUE: 2 views of the right knee. FINDINGS: Redemonstration of right total knee arthroplasty. Hardware appears intact. Small suprapatellar effusion. XR/XR knee RT 2V IMPRESSION: Redemonstration of right total knee arthroplasty. Hardware appears intact. Small suprapatellar effusion.
== END 2023-09-30 09:11 | disposition home or self-care (01) ==
LOC: HO.HOSX 09:10
PROVIDERS: Visit Provider Orthopaedic Surgery
DX: M25.562 Pain in left knee (principal); Z96.651 Presence of right artificial knee joint
CPT/HCPCS: 73560; 73565

== ENCOUNTER 2023-09-30 10:07 | Outpatient (AMB) | payer OTHER, SELFPAY ==
--- NOTE | 2023-09-30 10:23 | MHC.OFFVIS ---
Intake Intake Visit Reasons: OV - Right TKA 05/15/22 - Increased Pain Intake Note: Jes is a 56 year old female who presents today for a post op visit for her right TKA 05/25/22 NE. Patient reports that she felt a pop in the knee and has had increased pain, swelling, and felt as if knee was going to lock when driving 1 month ago. Currently her pain has subsided. Seen with her PCP who advise she should have it looked at. Allergies Influenza Virus Vaccines Allergy (Severe, Verified 09/30/23 10:25) Hives latex [LATEX] Allergy (Intermediate, Verified 09/30/23 10:25) RASH Penicillins [PENICILLINS] Allergy (Intermediate, Verified 09/30/23 10:25) RASH Sulfa (Sulfonamide Antibiotics) [SULFA (SULFONAMIDE ANTIBIOTICS)] Allergy (Intermediate, Verified 09/30/23 10:25) RASH, hives sulfite Allergy (Intermediate, Verified 09/30/23 10:25) Hives epinephrine [EPINEPHRINE] Adverse Reaction (Intermediate, Verified 09/30/23 10:25) w/novacaine (for dental work)-vomiting lactose Adverse Reaction (Intermediate, Verified 09/30/23 10:25) sinus infection Aquacell Dressing Allergy (Uncoded 09/30/23 10:25) blistering HPI OV - Right TKA 05/15/22 - Increased Pain HPI Details Jes is a 57 year old woman who presents with complaints of right knee pain. She has a hx of right TKA, DOS: 05/15/22. She says she felt a painful popping sensation in her knee, and reports intermittent pain and swelling since. She was seen by her PCP who recommended she follow up here. She says she is doing better now in regards to her pain, but she felt like her knee was going to lock up on her while driving. She states it has been improving. [facility] Medical History Anesthesia complication Arthritis COVID-19 vaccine series completed GERD (gastroesophageal reflux disease) HTN (hypertension) Migraines Obesity Surgical History H/O vein stripping (06/15/21) Hx laparoscopic cholecystectomy History of esophagogastroduodenoscopy (EGD) History of hysterectomy History of left knee replacement Social History Household Members: Significant Other and Family Housing: House Are you a primary emergency care attendant to a significant other at home: No Do you presently have visiting nurse or other home services: No Patient Tobacco Use Status: Former Tobacco user Quit Date: 1985 Tobacco use type: Cigarette Second Hand Smoke Exposure: No service: No Current occupational status: employed Current occupation: rt handed Review of Systems Const All systems reviewed & are unremarkable except as noted in HPI and below Physical Exam Const General: no acute distress, alert and awake Orientation/consciousness: patient oriented x3 HEENT Head: Yes normocephalic and Yes atraumatic Eyes EOM: EOMs intact bilaterally Resp Effort & Inspection: normal respiratory effort and able to speak in complete sentences Cardio Jugular venous distension: no JVD Skin General skin exam: turgor normal Rashes: no rashes Neuro General: patient oriented x3 Extrem Other: RIght knee with full ROM She can straight leg raise and there is no pain She has 5/5 quad strength She does have ttp over the distal quadriceps insertion with no palpable defect. Psych Appearance: grossly normal Affect: normal affect Attitude: cooperative Results Reviewed Results Reviewed: I personally reviewed relevant radiographs. Tight total knee arthroplasty in expected post operative position with no hardware complications or evidence of loosening Assessment & Plan Assessment & Plan (1) History of total right knee replacement: Code(s): Z96.651 - Presence of right artificial knee joint Plan: Jes is doing well. She has improving pain over the distal anterior thigh but is strong in knee extension with full, stable and painless ROM. She feels like she is improving. There is no defect palpable but she may have had a small internal dehiscence but she has no pain and her patella is stable. Given these findings I recommend HEP and follow up in 2 weeks to make sure she continues to improve. Plan Prepared for Aurelio Correa MD by Amadou Murrieta, faculty i on call medical assistant, on 09/30/23 at 10:27 AM, EST. Orders: Orders XR knee standing BI 09/30/23 M25.569 - Pain in unspecified knee XR knee LT 2V 09/30/23 M25.569 - Pain in unspecified knee XR knee RT 2V 09/30/23 M25.569 - Pain in unspecified knee Coding Level of Care Code Est Pt Level 3 (98803) Diagnoses History of total right knee replacement Z96.651
== END 2023-09-30 11:39 | disposition home or self-care (01) ==
PROVIDERS: Visit Provider Orthopaedic Surgery
DX: Z47.1 Aftercare following joint replacement surgery (principal); Z96.651 Presence of right artificial knee joint
CPT/HCPCS: 99213

== ENCOUNTER 2025-04-19 09:26 | Outpatient (AMB) | payer OTHER, SELFPAY ==
--- OUTSIDE RECORDS SUMMARY | 2011-04-08 | XMS_ITS | Encounter Summary ---
Author Organization [facility] Address [address] [employer] [facility] [address] [place] [address] Phone Care Team Providers Care Pharmaceutical Engineer Name Role Phone Unavailable Primary Care Provider Unavailabl e Encounter Details Date Type Department Care Team (Late st Contact Info) Description 04/08/2011 Hospital Encounter [facility],Outside Imaging 30 [place], [place] [phone] System, Provider Not In, PhD Partners [address] [address] Social History Tobacco Use Types Packs/Day Years [...] high school, GED, job training, learning the Ivorian language, technical skills, or developing parenting skills)? 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, 2nd [place] [address] 06/11/2025 9:30 AM EST Nutrition [facility] General Surgical Care [address] [place] [address] Suzy Finney LDN [address] [place] [address] [email or web address] 10/08/2025 9:30 AM EDT Office Visit [facility] Family Medicine [address] [place] [address] Brent Merrill MD [address] [facility], [address] [place] [address] [email or web address] documented as of this encounter Procedures Procedure [...] It is not the complete legal health record.[facility]
--- OUTSIDE RECORDS SUMMARY | 2012-06-09 01:00 | XMS_ITS | Encounter Summary ---
Author Organization [facility] Address [address] [employer] [facility] [address] [place] [address] Phone Care Team Providers Care Inventory Auditor Name Role Phone Unavailable Primary Care Provider Unavailabl e Encounter Details Date Type Department Care Team (Late st Contact Info) Description 06/09/2012 Hospital Encounter [facility],Outside Imaging 30 [place], [place] [phone] System, Provider Not In, PhD Partners [address] [address] Social History Tobacco Use Types Packs/Day Years [...] high school, GED, job training, learning the Cayman Islander language, technical skills, or developing parenting skills)? [...] [facility] General Surgical Care [address] [place] [address] Lianna Brown, JOSE 15 [facility], 2nd [place] [address] 06/11/2025 9:30 AM EST Nutrition [facility] General Surgical Care [address] [place] [address] Suzy Finney LDN [address] [place] [address] [email or web address] 10/08/2025 9:30 AM EDT Office Visit [facility] Family Medicine [address] [place] [address] Brent Merrill MD 22 [facility], [address] [place] [address] [email or web address] documented as of this encounter Procedures Procedure [...] It is not the complete legal health record.[facility]
--- OUTSIDE RECORDS SUMMARY | 2013-06-15 01:00 | XMS_ITS | Encounter Summary ---
Author Organization [facility] Address [address] [employer] [facility] [address] [place] [address] Phone Care Team Providers Care Coding Technician Name Role Phone Unavailable Primary Care Provider Unavailabl e Encounter Details Date Type Department Care Team (Late st Contact Info) Description 06/15/2013 Hospital Encounter [facility],Outside Imaging 30 [place], [place] [phone] System, Provider Not In, PhD Partners [address] [address] Social History Tobacco Use Types Packs/Day Years [...] high school, GED, job training, learning the South Sudanese language, technical skills, or developing parenting skills)? [...] [facility] General Surgical Care [address] [place] [address] Lianna Brown, JOSE 15 [facility], 2nd [place] [address] 06/11/2025 9:30 AM EST Nutrition [facility] General Surgical Care [address] [place] [address] Suzy Finney LDN [address] [place] [address] [email or web address] 10/08/2025 9:30 AM EDT Office Visit [facility] Family Medicine [address] [place] [address] Brent Merrill MD 22 [facility], [address] [place] [address] [email or web address] documented as of this encounter Procedures Procedure [...] It is not the complete legal health record.[facility]
--- NOTE | 2025-04-19 09:35 | MHC.OFFVIS ---
Vital Signs 04/19/25 09:37 Height 5 ft 3 in Weight 236 lb BMI 41.8 Intake Visit Reasons: New prob LT wrist pain w/o numbness and tingling Intake Note: Jes is a 59 year old right hand dominant woman who presents today for a new problem visit for evaluation of left wrist pain. States her pain is on her hanson aspect of hand, states she has radiating pain from her palm up to her middle finger and down her arm again. States this started about 1 year ago and has progressively worsen. No injury she can recall. Denies numbness and tingling. No EMG done. Allergies Influenza Virus Vaccines Allergy (Severe, Verified 04/19/25 09:41) Hives latex (LATEX) Allergy (Intermediate, Verified 04/19/25 09:41) RASH Penicillins (PENICILLINS) Allergy (Intermediate, Verified 04/19/25 09:41) RASH Sulfa (Sulfonamide Antibiotics) (SULFA (SULFONAMIDE ANTIBIOTICS)) Allergy (Intermediate, Verified 04/19/25 09:41) RASH, hives sulfite Allergy (Intermediate, Verified 04/19/25 09:41) Hives epinephrine (EPINEPHRINE) Adverse Reaction (Intermediate, Verified 04/19/25 09:41) w/novacaine (for dental work)-vomiting lactose Adverse Reaction (Intermediate, Verified 04/19/25 09:41) sinus infection Aquacell Dressing Allergy (Uncoded 04/19/25 09:41) blistering HPI HPI New prob LT wrist pain w/o numbness and tingling: Details: Jes is a 59 year old right hand dominant woman who presents today for a new problem visit for evaluation of left wrist pain. States her pain is on her hanson aspect of hand, states she has radiating pain from her palm up to her middle finger and down her arm again. States this started about 1 year ago and has progressively worsen. No injury she can recall. Denies numbness and tingling. Patient does report significant this in the 1st 3 digits of the right hand that has worsened since her pain started. No EMG done. [facility] Medical History Anesthesia complication Arthritis COVID-19 vaccine series completed GERD (gastroesophageal reflux disease) HTN (hypertension) Migraines Obesity Surgical History H/O vein stripping (06/15/21) Hx laparoscopic cholecystectomy History of esophagogastroduodenoscopy (EGD) History of hysterectomy History of left knee replacement Social History Household Members: Significant Other and Family Housing: House Are you a primary child care centre manager to a significant other at home: No Do you presently have visiting nurse or other home services: No Patient Tobacco Use Status: Former Tobacco user Tobacco use type: Cigarette Second Hand Smoke Exposure: No service: No Current occupational status: employed 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 Vascular: Capillary refill brisk. ROM: Patient can make a fist and extend all their digits. Skin: No lacerations or abrasions noted. General: No ecchymosis. No erythema or evidence of infection. Assessment & Plan Assessment & Plan (1) Weakness of left hand: Code(s): R29.898 - Other symptoms and signs involving the musculoskeletal system Category: Medical (2) Left hand pain: Code(s): M79.642 - Pain in left hand Category: Medical Plan 1. Pain and weakness in the median nerve distribution of the left hand and wrist Patient is educated about this condition Patient is educated about the typical recovery course At this time, patient is educated that her presentation would be atypical for left carpal tunnel syndrome, however given her weakness, the location of her pain, and evidence of APB muscle wasting I do feel that it is appropriate to order an EMG and nerve conduction study of the left hand to assess the health of the median nerve Patient will follow-up after this study for results review and discussion of further treatment options Patient understands this in his amenable to this plan Orders: Orders NE nerve conduction velocity Today R20.0 - Anesthesia of skin, R20.2 - Paresthesia of skin NE electromyogram (EMG) Today R20.0 - Anesthesia of skin, R20.2 - Paresthesia of skin Coding Level of Care Code Est Pt Level 3 (64256) Diagnoses Weakness of left hand R29.898 Left hand pain M79.649
[2025-04-19 09:37] VITALS: BMI 41.8
--- OUTSIDE RECORDS SUMMARY | 2025-04-19 09:58 | XMS_ITS | Encounter Summary ---
Author Organization [facility] Address [address] [facility] [address] [place] [address] Phone Care Team Providers Care Auto Apprentice Mechanic Name Role Phone Brent Merrill MD Primary Care Provider [phone] Aurelio Correa MD Unavailable [phone] Encounter Details Date Type Department Care Team (Late st Contact Info) Description 10/29/2021 Procedure Pass [facility], [facility] [address] [place] [address] Social History Tobacco Use Types Packs/Day Years Used Date Smoking Tobacco: Never Smokeless Tobacco: Never Alcohol Use Standard Drinks/Week Comments Not Currently 0 (1 standard drink = 0.6 oz pur e alcohol) Child or Family Care Answer Date Record ed Do you have problems with on e of the following making it difficult for you to work, study, or receive health care? No 01/19/2021 Education Answer Date Recorded Are you interested in help w ith more adult education (for example, completing high school, GED, job training, learning the French language, technical skills, or developing parenting skills)? No 01/19/2021 Food Answer Date Recorded Within the past 6 months we worried whether our food would run out before we got money to buy more. Never True 01/19/2021 Within the past 6 months the food we bought just didn't last and we didn't have enough money to get more. Never True Residential Stability Answer Date Recor ded What is your housing situation today? I have ye sing 01/19/2021 How many times have you move d in the past 12 months? Zero (I did not move) 01/19/2021 06 Are you worried that in t he next 2 months, you may not have your own housing to live in? No 01/19/2021 Paying for Meds Answer Date Recorded Do you have trouble paying for medicines? No 01/19/2021 Paying Utility Bills Answer Date Record ed Do you have trouble paying your heating or elect ricity bill? No 01/19/2021 Transportation Answer Date Recorded Has the lack of transportati on kept you from medical appointments or from getting medications? No 01/19/2021 Unemployment Answer Date Recorded Are you currently unemployed or working on a part-time or temporary basis, and looking for work? No 01/19/2021 Comments No Sex and Gender Information Value [...] Description 05/08/2025 10:15 AM EDT Office Visit [facility] General Surgical Care [address] [place] [address] [place] [address] Lianna Brown, JOSE [address] [facility], 2nd [place] [address] 06/11/2025 9:30 AM EST Nutrition [facility] General Surgical Care [address] [place] [address] [place] [address] Suzy Finney LDN [address] [place] [address] 10/08/2025 9:30 AM EDT Office Visit [facility] [address] [place] [address] Brent Merrill MD 22 [facility], [address] [place] [address] documented as of this encounter Visit Diagnoses Not on filedocumented in this encounter Additional Health Concerns Infection Onset Date Last Indicated Resolved Time CoV-Risk 12/07/2022 12/07/2022 12/18/2022 1:25 AM EDT COVID-19 06/01/2023 06/01/2023 06/22/2023 1:21 AM EST CoV-Risk 11/02/2024 11/02/2024 11/13/2024 1:23 AM EDT Assessment Noted Time PHQ-2 Depression Total Score: 0 01/20/20 10:30 AM EDT documented as of this encounter Care Teams Auto Apprentice Mechanic Relationship Specialty Start Date End Date Brent Merrill MD [address] [place] [address], [address] [place] [address] [email or web address] PCP - General Internal Medicine 09/24/20 Aurelio Correa MD [address] [place] [address] [place] [address] Orthopedic Surgery 04/28/22 documented as of this encounter Additional Source Comments The information contained in this document represents components of the legal health record. It is not the complete legal health record.[facility]
--- OUTSIDE RECORDS SUMMARY | 2025-04-19 09:58 | XMS_ITS | Encounter Summary ---
Author Organization [facility] Address [address] [place] [address] [address] [place] [address] Phone Care Team Providers Care Plant Maintenance Mechanic Name Role Phone Brent Merrill MD Primary Care Provider [phone] Aurelio Correa MD Unavailable [phone] Encounter Details Date Type Department Care Team (Latest Contact Info) Description 10/29/2021 Transcribe Orders Virtual Department [address] [place] [address] Brent Merrill MD 22 [facility], [address] [place] [address] [email or web address] Breast screening (Primary Dx) Social History Tobacco Use Types Packs/Day Years [...] high school, GED, job training, learning the Niuean language, technical skills, or developing parenting skills)? [...] housing situation today? I have ye lambert 01/19/2021 How many times have you move [...] and looking for work? No 01/19/2021 Comments Unknown Sex and Gender Information Value Date Recorded [...] Description 05/08/2025 10:15 AM EDT Office Visit [facility] General Surgical Care [address] [place] [address] [place] [address] Lianna Brown, JOSE 15 [facility], 2nd [place] [address] 06/11/2025 9:30 AM EST Nutrition [facility] General Surgical Care [address] [place] [address] Suzy Finney LDN [address] [place] [address] 10/08/2025 9:30 AM EDT Office Visit [facility] [address] [place] [address] Brent Merrill MD 22 [facility], [address] [place] [address] [email or web address] documented as of this encounter Results * BI MAMMOGRAM SCREENING WITH TOMOSYNTHESIS WITH CAD (BILATERAL) (11/30/2021 11:51 AM EDT) Anatomical Region Laterality Modality Breast Left, Breast Right, Breast Bilateral Bila teral Mammography 11/30/2021 12:1 4 PM EDT Impressions 11/30/2021 12:16 PM EDT No findings suspicious for malignancy are identified. In the absence of a worrisome palpable abnormality, annual screening mammography is recommended. BI-RADS CATEGORY: 1 - Negative. DENSITY: There are scattered fibroglandular densities. Narrative 11/30/2021 12:16 PM EDT COMPARISON: 04/08/2011 through 09/22/2018 Bilateral 3-D tomosynthesis with 2-D reconstructions in the CC and MLO projection. Computer-aided detection system was utilized. No new mass, asymmetry, architectural distortion or suspicious calcifications have become apparent on either side. Procedure Note Mak Enriquez MD - 11/30/2021 COMPARISON: 04/08/2011 through 09/22/2018 Bilateral 3-D tomosynthesis with 2-D reconstructions in the CC and MLOprojection. Computer-aided detection system was utilized. No new mass, asymmetry, architectural distortion or suspiciouscalcifications have become apparent on either side. IMPRESSION: No findings suspicious for malignancy are identified. In the absence of aworrisome palpable abnormality, annual screening mammography isrecommended. BI-RADS CATEGORY: 1 - Negative. DENSITY: There are scattered fibroglandular densities. us Brent Merrill MD IMG MG EXAMS Final Resu lt documented in this encounter Visit Diagnoses Diagnosis Breast screening- Primary Breast screening, unspecified Breast screening Breast screening, unspecified documented in this encounter Additional Health Concerns Infection Onset Date Last Indicated Resolved Time CoV-Risk 12/07/2022 12/07/2022 12/18/2022 1:25 AM EDT COVID-19 06/01/2023 06/01/2023 06/22/2023 1:21 AM EST CoV-Risk 11/02/2024 11/02/2024 11/13/2024 1:23 AM EDT Assessment Noted Time PHQ-2 Depression Total Score: 0 01/20/20 10:30 AM EDT documented as of this encounter Care Teams Plant Maintenance Mechanic Relationship Specialty Start Date End Date Brent Merrill MD [address] [place] [address], [address] [place] [address] PCP - General Internal Medicine 09/24/20 Aurelio Correa MD [address] [place] [address] Dr Moore [address] [place] [address] Orthopedic Surgery 04/28/22 documented as of this encounter Additional Source Comments The information contained in this document represents components of the legal health record. It is not the complete legal health record.[facility]
--- OUTSIDE RECORDS SUMMARY | 2025-04-19 09:58 | XMS_ITS | Encounter Summary ---
Author Organization [facility] Address [address] [facility] [address] [place] [address] Phone Care Team Providers Care Metal Fabricating Supervisor Name Role Phone Brent Merrill MD Primary Care Provider [phone] Aurelio Correa MD Unavailable [phone] Encounter Details Date Type Department Care Team (Late st Contact Info) Description 11/05/2021 Ancillary Orders [facility],Outside Imaging [address] [place] [address] System, Provider Not In, [facility] [address] [address] Social History Tobacco Use Types Packs/Day Years [...] high school, GED, job training, learning the Eritrean language, technical skills, or developing parenting skills)? 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 [address] 10/08/2025 9:30 AM EDT Office Visit [facility] Family Medicine [address] [place] [address] Brent Merrill MD [address] [place] [address], [address] [place] [address] [email or web address] documented as of this encounter Results * Mammogram Outside (No Interpretation) (09/22/2018 12:00 AM EST) Narrative SYSTEMGENERATED, DOCUMENTATION - 11/05/2021 11:57 AM EDT This study is for PACS storage only and not for interpretation. us Provider Not In System PhD IMG OUTSIDE IMAGING W /OUT INTERPRETATION Final Result * Mammogram Outside (No Interpretation) (06/15/2013 12:00 AM EST) Narrative SYSTEMGENERATED, DOCUMENTATION - 11/05/2021 11:58 AM EDT This study is for PACS storage only and not for interpretation. us Provider Not In System PhD IMG OUTSIDE IMAGING W /OUT INTERPRETATION Final Result * Mammogram Outside (No Interpretation) (06/09/2012 12:00 AM EST) Narrative SYSTEMGENERATED, DOCUMENTATION - 11/05/2021 11:58 AM EDT This study is for PACS storage only and not for interpretation. us Provider Not In System PhD IMG OUTSIDE IMAGING W /OUT INTERPRETATION Final Result * Mammogram Outside (No Interpretation) (04/20/2011 12:00 AM EDT) Narrative SYSTEMGENERATED, DOCUMENTATION - 11/05/2021 11:59 AM EDT This study is for PACS storage only and not for interpretation. us Provider Not In System PhD IMG OUTSIDE IMAGING W /OUT INTERPRETATION Final Result * Mammogram Outside (No Interpretation) (04/08/2011 12:00 [...] documented as of this encounter Care Teams Metal Fabricating Supervisor Relationship Specialty Start Date End Date Brent Merrill MD [address] [place] [address], [address] [place] [address] PCP - General Internal Medicine 09/24/20 Aurelio Correa MD [address] [place] [address] [place] [address] Orthopedic Surgery 04/28/22 documented as of this encounter Additional Source Comments The information contained in this document represents components of the legal health record. It is not the complete legal health record.[facility]
--- OUTSIDE RECORDS SUMMARY | 2025-04-19 09:59 | XMS_ITS | Encounter Summary ---
Author Organization [facility] Address [address] [facility] [address] [place] [address] Phone Care Team Providers Care Silver Designer Name Role Phone Brent Merrill MD Primary Care Provider [phone] Aurelio Correa MD Unavailable [phone] Encounter Details Date Type Department Care Team (Late st Contact Info) Description 02/21/2024 Procedure Pass [facility], [facility] [address] [place] [address] Social History Tobacco Use Types Packs/Day Years Used Date Smoking Tobacco: Never Smokeless Tobacco: Never Alcohol Use Standard Drinks/Week Comments Not Currently 0 (1 standard drink = 0.6 oz pur e alcohol) Child or Family Care Answer Date Record ed Do you have problems with on e of the following making it difficult for you to work, study, or receive health care? No 08/09/2023 Education Answer Date Recorded Are you interested in help w ith more adult education (for example, completing high school, GED, job training, learning the Divehi language, technical skills, or developing parenting skills)? No 08/09/2023 Are you concerned about learning? Not on file 08/09/2023 No 08/09/2023 Yes 08/09/2023 Food Answer Date Recorded Within the past 6 months we worried whether our food would run out before we got money to buy more. Never True 08/09/2023 Within the past 6 months the food we bought just didn't last and we didn't have enough money to get more. Never True Residential Stability Answer Date Recor ded What is your housing situation today? I have ye lambert 08/09/2023 How many times have you move d in the past 12 months? Zero (I did not move) 08/09/2023 Paying for Meds Answer Date Recorded Do you have trouble paying for medicines? No 08/09/2023 Paying Utility Bills Answer Date Record ed Do you have trouble paying your heating or elect ricity bill? Yes 08/09/2023 Transportation Answer Date Recorded Has the lack of transportati on kept you from medical appointments or from getting medications? No 08/09/2023 Unemployment Answer Date Recorded Are you currently unemployed or working on a part-time or temporary basis, and looking for work? No 01/19/2021 Digital Access Answer Date Recorded No 08/09/2023 Yes 08/09/2023 Do you have reliable internet access at home? Ye s 08/09/2023 Do you have a device (e.g., phone, tablet, computer) with a working camera? Yes 08/09/2023 Intimate Partner Violence Answer Date R ecorded Denied Basic Needs Not on file 08/09/2023 In the past 12 months have y ou been in a relationship with a person who hurts, threatens, or tries to control you? No 08/09/2023 Worried food would run out Not on file 08/09 In the past 12 months have y ou been in a relationship with a person who hurts, threatens, or tries to control you? No 08/09/2023 Comments No Sex and Gender Information Value [...] 10:15 AM EDT Office Visit [facility] General Surgical Care [address] [place] [address] Lianna Brown, NURSING SERVICE DIRECTOR [address] [facility], [address] [place] [address] 06/11/2025 9:30 AM EST Nutrition [facility] General Surgical Care [address] [place] [address] Suzy Finney LDN [address] [place] [address] 10/08/2025 9:30 AM EDT Office Visit [facility] Family Medicine [address] [place] [address] Brent Merrill MD [address] [place] [address], [address] [place] [address] documented as of this encounter Visit Diagnoses Not on filedocumented in this encounter Additional Health Concerns Infection Onset Date Last Indicated Resolved Time CoV-Risk 11/02/2024 11/02/2024 11/13/2024 1:23 AM EDT Assessment Noted Time PHQ-2 Depression Total Score: 0 08/09/19 24 8:10 AM EST documented as of this encounter Care Teams Silver Designer Relationship Specialty Start Date End Date Brent Merrill MD [address] [place] [address], [address] [place] [address] PCP - General Internal Medicine 09/24/20 Aurelio Correa MD [address] [place] [address] Dr [address] [place] [address] Orthopedic Surgery 04/28/22 documented as of this encounter Additional Source Comments The information contained in this document represents components of the legal health record. It is not the complete legal health record.[facility]
--- OUTSIDE RECORDS SUMMARY | 2025-04-19 09:59 | XMS_ITS | Clinical Summary ---
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 Active EPINEPHrine 0.3 mg/0.3 mL auto-injector Inject 0.3 mg into the muscle as needed for anaphylaxis. Active acetaminophen (TYLENOL) 325 mg tablet Take 325 mg by mouth every 6 (six) hours as needed for mild pain or 1-3 (on a general 0-10 scale). Every 6-8 hours as needed. 05/28/20 22 Active lisinopril (PRINIVIL,ZESTRI L) 5 MG tabletIndication s:Essential hypertension Take 1 tablet (5 mg total) by mouth daily. 90 tablet 3 09/11/19 25 Active estradiol-noreth indrone (COMBIPATCH) 0.05-0.14 mg/24 hrIndications:Me nopausal vasomotor syndrome Place 1 patch onto the skin 2 (two) times a week. 28 patch 3 11/30/19 Active therapeutic multivitamin tablet Take 1 tablet by mouth daily. Active cyanocobalamin, vitamin B-12, 1000 MCG tablet Take 1,000 mcg by mouth daily. Active semaglutide, weight loss, (WEGOVY) 0.25 mg/0.5 mL subcutaneous pen injectionIndicat ions:Class 3 severe obesity with serious comorbidity and body mass index (BMI) of 40.0 to 44.9 in adult Inject 0.5 mL (0.25 mg total) under the skin every 7 days. 2 mL 03/12/20 25 Active Additional Information Patient not taking.Reported on 04/10/2025 semaglutide, weight loss, (WEGOVY) 0.5 mg/0.5 mL subcutaneous injection Inject 0.5 mL (0.5 mg total) under the skin every 7 days. 2 mL 04/02/20 Active enoxaparin (LOVENOX) 40 mg/0.4 mL Syrg subcutaneous syringe Inject 0.4 mL under the skin daily. 05/28/20 022 Discontin ued(No longer taking) Active Problems Problem Noted Date Diagnosed Date Prediabetes 03/17/2025 Menopausal vasomotor syndrome 11/28/2024 Assessment & Plan (03/12/2025 4:58 PM EDT): Much better with hormone replacement therapy, continue the same. Assessment & Plan (11/28/2024 9:43 PM EDT): Laboratories done last month showed no significant abnormality. She did have a slight elevation of her C-reactive protein, but she has no other symptoms consistent with an inflammatory arthropathy. Symptoms are likely caused by menopause. I would like her to try hormone replacement therapy. Benefits risks and side effects were reviewed. If this fails to control her symptoms, she will need further evaluation. Carpal tunnel syndrome of left wrist 11/28/2024 Assessment & Plan (11/28/2024 9:40 PM EDT): Symptoms are consistent with mild to moderate carpal tunnel syndrome. I like her to use a nighttime splint. If this is not helpful she should use it during the day as well. If this does not alleviate her symptoms, she will let me know and I can refer her to orthopedics for possible steroid injection. Gastroesophageal reflux disease without esophagi tis 09/11/2024 Assessment & Plan (09/11/2024 5:04 PM EST): Avoid eating or drinking 2 hours before going to bed. If symptoms persist, will need GI evaluation. Impaired fasting glucose 02/16/2024 Assessment & Plan (09/11/2024 5:03 PM EST): Dietary counseling given Rash and other nonspecific skin eruption 024 Assessment & Plan (02/08/2024 8:57 PM EDT): I suspect this rash represents a package of atopic eczema or stasis dermatitis related to her varicosities. It has improved but not resolved. No significant improvement with triamcinolone, so I will try her on a higher dose steroid. If this is not effective, she should schedule appointment to see dermatology. Referral is already been sent. Assessment & Plan (09/22/2023 9:45 AM EST): Given lack of improvement with topical steroid will trial antifungal. Pt advised on proper administration. Will call with worsening or failure to improve. Acute pain of right knee 09/22/2023 Assessment & Plan (09/22/2023 9:45 AM EST): Question strain vs ligament vs meniscus involvement. Advised she continue ice/heat, ibuprofen/tylenol as needed. Advised she follow up with surgeon for further evaluation and management given fairly recent surgical intervention in same knee. She will call to schedule appointment today. Will call with worsening or failure to improve. Pt verbalized understanding, agreeable to plan. History of total knee arthroplasty, right 2021 Assessment & Plan (06/09/2022 10:01 AM EST): Clinically she is doing well. She will continue with PT and OT. She will follow- up as planned with orthopedics tomorrow for Varicose veins of both lower extremities with pa in 01/22/2021 Assessment & Plan (08/31/2021 10:57 AM EST): Better after pain surgery. She is considering having the same thing done on the right side. Assessment & Plan (01/22/2021 3:40 PM EDT): Patient will schedule follow-up appointment with vascular at [facility]. Class 3 severe obesity with serious comorbidity and body mass index (BMI) of 40.0 to 44.9 in adult 01/22/2021 Overview (03/12/2025): WHO class 3, AACE 0 Assessment & Plan (03/12/2025 4:57 PM EDT): Follow-up as planned with weight loss clinic Assessment & Plan (03/12/2025 12:00 PM EDT): Pt was educated on the pathophysiology of obesity, which is a chronic, relapsing, often progressive neuroendocrine disease with behavioral components. We discussed treatment approaches including lifestyle changes, pharmacotherapy & bariatric surgery. We discussed their personal treatment goals. We discussed targeting a weight loss goal of 5-10% over the next 6 months as this modest amount of weight loss has been shown to decrease blood pressure, insulin resistance, sleep apnea, liver inflammation, arthritic pain and improve dyslipidemia. I recommend the following labs as part of their initial evaluation, the results of which will direct further treatment recommendations: Fasting lipid, CMP, A1c, TSH w reflex, Vit D, CBC, fasting insulin Patient was given the initial meal plan and exercise recommendations. I recommend patient work with our dietitian, Latonya Finney RD and have asked them to schedule an appt. I have recommended the following Anti-Obesity Medication: Semaglutide The patient has completed > 6 months of efforts focused on dietary and lifestyle changes and has been unsuccessful in reaching their weight loss goals. I am certified in obesity medicine and work with a registered nurse practitioner. We will continue monitoring the patient's clinical progress & supporting them with their lifestyle changes. They will start at start 0.25 mg subq weekly, then if tolerated we can titrate dose q 4 weeks. I have explained that this medication decreases appetite & food cravings and increases feeling of fullness. I have have reviewed the following possible side effects: Nausea, vomiting, constipation, gastroparesis, SBO, pancreatitis, gallstones, suicidal thoughts, diabetic retinopathy, optic neuropathy, low blood sugar and in rat studies an increased risk of medullary thyroid cancer and MEN2. This medication is not recommended in patients with a personal or family history of medullary thyroid cancer or multiple endocrine neoplasia 2A or 2B. We also discussed health insurance inflicted barriers to obtaining GLP1RA and possible need for prior authorization & appeal Assessment & Plan (09/11/2024 5:03 PM EST): She is interested in treatment with GLP-1 receptor agonist. Referred to weight loss center Assessment & Plan (08/09/2023 9:06 AM EST): Encouraged to continue working with weight watchers. Assessment & Plan (01/22/2021 4:12 PM EDT): Diet and exercise counseling were given. Essential hypertension 10/17/2020 Assessment & Plan (03/12/2025 4:57 PM EDT): Well-controlled, continue current medication Assessment & Plan (09/11/2024 5:03 PM EST): Blood pressure is well-controlled, continue current medication. Assessment & Plan (02/08/2024 8:57 PM EDT): Well-controlled, continue current medication. Assessment & Plan (08/09/2023 9:06 AM EST): Well-controlled, check labs and if no significant abnormality, continue current medication. Assessment & Plan (06/09/2022 10:02 AM EST): Blood pressures well controlled, continue current medication. Assessment & Plan (04/28/2022 11:13 AM EDT): Well-controlled, continue current medication Assessment & Plan (08/31/2021 10:57 AM EST): Well-controlled, continue current medication. Assessment & Plan (01/22/2021 4:12 PM EDT): Blood pressures well controlled, continue current medication. Assessment & Plan (10/17/2020 1:34 PM EDT): Blood pressures well controlled, continue current medication. I will obtain and review her old records. We will check labs at her next appointment and I had like to see her for a preventive health visit in about 3 months. Primary osteoarthritis involving multiple joints 10/17/2020 Assessment & Plan (08/09/2023 9:07 AM EST): Symptoms are consistent with osteoarthritis, encouraged to work on losing weight and doing some stretching exercises. Assessment & Plan (10/17/2020 1:36 PM EDT): Symptoms are consistent with osteoarthritis. I would like to examine her in the office to better confirm this diagnosis. If her symptoms worsen I can certainly see her sooner otherwise this can wait until her preventive health visit in about 3 months. History of hysterectomy 10/17/2020 Overview (11/28/2024): Supracervical Assessment & Plan (10/17/2020 1:39 PM EDT): It is possible she had a subtotal hysterectomy. I will check the operative report. If she still has a cervix she should continue having cervical cancer screening. Resolved Problems Problem Noted Date Diagnosed Date Resolved Date Acute upper respiratory infection 06/13/2023 08/09/2023 Assessment & Plan (06/13/2023 4:12 PM EST): Symptoms are likely due to virus and possibly allergies. Recommend trying Flonase nasal spray. If she is not seeing significant improvement in a few days, I will start her on azithromycin for possible sinus infection. Unfortunately she is allergic to multiple antibiotics, but she is tolerated this in the past. Acute cough 12/09/2022 09/11/2024 Assessment & Plan (05/22/2024 1:39 PM EDT): Negative chest x-ray but given double worsening, will treat with azithromycin for atypical pneumonia. I spoke with her on the phone to review directions. Push fluids, rest. Limit dairy. Call with progressive SOB, confusion, fever unable to be managed with Tylenol. She agrees. Assessment & Plan (12/09/2022 9:03 AM EDT): Reassuring exam today. Likely result of viral upper respiratory infection and allergies. Will trial benzonatate for cough. Advised continued home care measures such as saline nasal rinses for congestion. Advised tea with honey, salt water gargle and/or throat lozenges for sore throat. Advised she could use Tylenol 1000 mg every 6 hours as needed for pain or fever or ibuprofen 600 mg every 8 hours as needed for pain or fever. Advised to call the office if her symptoms are not improving in about 1 week, or if they have not resolved in 3 weeks. If your symptoms are getting worse, please call the office sooner. Dysuria 01/04/2022 08/09/2023 Primary osteoarthritis of left knee 08/31/2021 08/09/2023 Assessment & Plan (08/31/2021 10:57 AM EST): She is considering having knee replacement in the spring or summer after she returns from [facility]. She will follow-up as planned with orthopedics per Primary osteoarthritis of right knee 01/22/2021 08/09/2023 Assessment & Plan (04/28/2022 11:14 AM EDT): If her labs and EKG showed no significant abnormality, there is no contraindication to proceed with her surgery. She is at low risk for complications. I do recommend that she have her teeth cleaned prior to having her knee arthroplasty and if the surgeon would prefer that she not have her teeth cleaned for 1 month prior to the surgery, she may want to delay the surgical date, but if she prefers to have it done prior to having her teeth cleaned, that is not unreasonable. Assessment & Plan (01/22/2021 4:13 PM EDT): Try Celebrex, if no better, she will schedule appointment see orthopedics. Do not take other nonsteroidals with Celebrex. Iliotibial band syndrome of right side 09/24/2020 01/22/2021 Assessment & Plan (10/17/2020 1:35 PM EDT): Symptoms are gradually improving. Continue icing as needed. If not gradually resolving, she will let me know I can refer her for physical therapy. Assessment & Plan (09/24/2020 9:24 PM EST): Symptoms are likely due to injury to her iliotibial band insertion or the underlying bursa. I recommend she ice the area for 15 to 20 minutes 2 or 3 times daily and avoid long walks until her symptoms resolved. If it is not gradually improving over the course of the next week or 2 I will send her for physical therapy. Encounters Date Type Department Care Team Description 04/10/2025 10:00 AM EDT Nutrition [facility] [address] [place] [address] [place] [address] Suzy Finney LDN Morbid obesity with BMI of 40.0-44.9, adult (Primary Dx) 03/15/2025 7:08 AM EDT - 03/15/2025 11:59 PM EDT Hospital Encounter [facility] [address] [place] [address] Lianna Brown CNP Discharge Disposition: Home or Self Care 03/15/2025 Orders Only [address] [place] [address] Brent Merrill MD 03/12/2025 4:15 PM EDT Office Visit [address] [place] [address] Brent Merrill MD Essential hypertension (Primary Dx); Class 3 severe obesity with serious comorbidity and body mass index (BMI) of 40.0 to 44.9 in adult; Menopausal vasomotor syndrome 03/12/2025 11:00 AM EDT Office Visit [facility] [address] [place] [address] Lianna Brown CNP Class 3 severe obesity with serious comorbidity and body mass index (BMI) of 40.0 to 44.9 in adult (Primary Dx) from Last 3 Months Immunizations Immunization Administration Dates Next Due Tdap 02/27/2015 Family History Medical History Relation Comments Diabetes Brother Hypoglycemia Daughter Diabetes Father insulin dependen t Heart attack Father Heart failure Father Dementia Mother Hypoglycemia Mother Hypertension Sister Hypoglycemia Son Insomnia Son Breast cancer Neg Hx Relation Status Comments Brother Alive Daughter Alive Father Mother Sister Alive Son Alive Social History Tobacco Use Types Packs/Day Years Used Date Smoking Tobacco: Never Smokeless Tobacco: Never Tobacco Cessation:Counseling Given: Not Answered Alcohol Use Standard Drinks/Week Comments Not Currently [...] high school, GED, job training, learning the [place] language, technical skills, or developing parenting [...] your housing situation today? 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 Not on file N ot on file [employer] Not on file Not on file Not on file Last Filed Vital Signs Vital Sign [place] Time Taken Comments Blood Pressure 124/80 04/10/2025 10:00 AM EDT Pulse 86 04/10/2025 10:00 AM EDT Temperature 36.6 C (97.8 F) 04/10/2025 10:00 AM EDT Respiratory Rate 18 08/27/2024 10:5 1 AM EST Oxygen Saturation 99% 04/10/2025 10: 00 AM EDT Inhaled Oxygen Concentration - - Weight 108.2 kg (238 lb 9.6 oz) 025 10:00 AM EDT Height 160 cm (5' 2.99 ) 04/10/2025 10: 00 AM EDT Body Mass Index 42.28 04/10/2025 10:00 AM EDT Plan of Treatment Upcoming Encounters Date Type Department Care Team (Late st Contact Info) Description 05/08/2025 10:15 AM EDT Office Visit [facility] [address] [place] [address] Lianna Brown, POSTAL S[employer]ING OFFICER [address] [facility] [place] [address] 06/11/2025 9:30 AM EST Nutrition [facility] Surgical [facility] [address] [place] [address] Suzy Finney LDN [address] [place] [address] 10/08/2025 9:30 AM EDT Office Visit [facility] [address] [place] [address] Brent Merrill MD [address] [facility] [place] [address] Health Maintenance Due Date Last Done Comments COLONOSCOPY 10/19/2012 FIT TEST 10/19/2012 FOBT 10/19/2012 SIGMOIDOSCOPY 10/19/2012 VIRTUAL COLONOSCOPY 10/19/2012 PNEUMOCOCCAL VACCINES (50+ years) (1 of 1 - PCV) 10/19/2017 ZOSTER VACCINES (1 of 2) 10/19/2017 COLOGUARD 05/13/2024 05/13/2021 COLORECTAL CANCER SCREENING 05/13/2024 Adult Td,Tdap Booster 02/27/2025 02/27/2015 INFLUENZA VACCINE (#1) 2025 COVID-19 VACCINE ( season) 2025 05/10/2022, 07/07/2021, 11/15/2020, Additional history exists DEPRESSION SCREENING 09/11/2025 09/11/2024 BLOOD PRESSURE 10/08/2025 04/10/2025 CREATININE LEVEL 03/15/2026 03/15/2025, 10/2024, 02/10/2024, Additional history exists POTASSIUM LEVEL 03/15/2026 03/15/2025, 04/0 10/2024, 02/10/2024, Additional history exists MAMMOGRAM 06/08/2026 06/08/2024, 05/0 09/2021, 09/22/2018, Additional history exists SCREENING FOR DIABETES 03/15/2028 03/15/2025, 2024 LIPID PANEL 03/15/2030 03/15/2025, 01/26/2021 HEPATITIS C SCREENING Completed 01/26/2021 HIV ONE-TIME SCREENING (18-65 YEARS) Completed 01/26/2021 SMOKING STATUS SCREENING (Once After 26 Yrs) Completed 04/10/2025 HEPATITIS A VACCINES Aged Out No long er eligible based on patient's age to complete this topic HIB VACCINES Aged Out No longer eligi ble based on patient's age to complete this topic MENINGOCOCCAL VACCINES (ACWY) Aged Out No longer eligible based on patient's age to complete this topic MENINGOCOCCAL VACCINES (B) Aged Out N o longer eligible based on patient's age to complete this topic Medical Devices Not on file Procedures Procedure Name Priority Date/Time Associated Diagnosis Comments 25-OH VITAMIN D Routine 03/15/2025 7:40 AM EDT Class 3 severe obesity with serious comorbidity and body mass index (BMI) of 40.0 to 44.9 in adult COMPREHENSIVE METABOLIC PANEL Routine 03/15/2025 7:40 AM EDT Class 3 severe obesity with serious comorbidity and body mass index (BMI) of 40.0 to 44.9 in adult HEMOGLOBIN A1C Routine 03/15/2025 7:40 AM EDT Class 3 severe obesity with serious comorbidity and body mass index (BMI) of 40.0 to 44.9 in adult INSULIN LEVEL Routine 03/15/2025 7:40 AM EDT Class 3 severe obesity with serious comorbidity and body mass index (BMI) of 40.0 to 44.9 in adult LIPID PANEL Routine 03/15/2025 7:40 AM EDT Class 3 severe obesity with serious comorbidity and body mass index (BMI) of 40.0 to 44.9 in adult TSH WITH REFLEX Routine 03/15/2025 7:40 AM EDT Class 3 severe obesity with serious comorbidity and body mass index (BMI) of 40.0 to 44.9 in adult BI MAMMOGRAM SCREENING WITH TOMOSYNTHESIS WITH CAD (BILATERAL) Routine 06/08/2024 8:08 AM EST Visit for screening mammogram OUTSIDE COLOGUARD Routine 05/13/2021 HEPATITIS C ANTIBODY, QUALITATIVE Routine 01/26/2021 8:17 AM EDT Need for hepatitis C screening test from Last 3 Months or Most Recently Relevant to Health Maintenance Results * (ABNORMAL) Comprehensive metabolic panel (03/15/2025 7:40 AM EDT) SODIUM 139 133 - 146 mmol/L [facility] POTASSIUM 3.9 3.3 - 5.1 mmol/L [facility] CHLORIDE 104 96 - 108 mmol/L [facility] CO2 21 21 - 35 mmol/L [facility] BUN 13 6 - 19 mg/dL [facility] CREATININE 0.60 0.5 - 1.5 mg/dL [facility] GLUCOSE 106(H) 70 - 99 mg/dL [facility] ALBUMIN 4.3 3.9 - 4.8 g/dL [facility] TOTAL PROTEIN 7.4 6.5 - 8.0 g/dL [facility] CALCIUM 9.4 8.4 - 10.3 mg/dL [facility] ALKALINE PHOSPHATASE 79 39 - 117 U/L [facility] TOTAL BILIRUBIN 0.6 0.0 - 1.2 mg/dL [facility] AST 19 0 - 37 U/L [facility] ALT 20 0 - 40 U/L [facility] GLOBULIN 3.1 1 - 4.8 g/dL [facility] EGFR 105 >59 mL/min/1.7 3m2 [facility] Comment:Estimated glomerular filtration rate calculated using the CKD-EPI refit equation. ANION GAP 18 10 - 20 mmol/L [facility] Blood 03/15/2025 7:40 AM EDT 03/15/2025 7:47 AM EDT us Lianna Brown [facility] LAB BLOOD ORDERABLES Final Result [facility] [address] [place] [address] * TSH with reflex (03/15/2025 7:40 AM EDT) TSH 1.84 0.27 - 4.20 uIU/mL [facility] Blood 03/15/2025 7:40 AM EDT 03/15/2025 7:47 AM EDT [employer] LAB BLOOD ORDERABLES Final Result [address] [address] * 25-OH vitamin D (03/15/2025 7:40 AM EDT) 25 OH VIT D (TOTAL) 35 30 - 60 ng/mL [facility] Blood 03/15/2025 7:40 AM EDT 03/15/2025 7:47 AM EDT [employer] [place] [employer] OFF[employer] LAB BLOOD ORDERABLES Final Result Performing Organization Address City/[facility]/ZIP Co de Phone Number [address] [address] * Insulin Level (03/15/2025 7:40 AM EDT) INSULIN 15.6 2.6 - 25.0 uIU/mL [facility] Blood 03/15/2025 7:40 AM EDT 03/15/2025 7:46 AM EDT [employer] LAB BLOOD ORDERABLES Final Result Performing Organization Address City/[facility]/ZIP Co de Phone Number [address] [address] * (ABNORMAL) Hemoglobin A1c (03/15/2025 7:40 AM EDT) HEMOGLOBIN A1C 6.0(H) 4.3 - 5.8 % [facility] Blood 03/15/2025 7:40 AM EDT 03/15/2025 7:46 AM EDT [facility] Final Result Performing Organization Address [facility] Co de Phone Number [address] [address] * (ABNORMAL) Lipid panel (03/15/2025 7:40 AM EDT) HDL 69 mg/dL [facility] Comment: Interpretation <40 mg/dL: Low HDL cholesterol (major risk factor for CHD) Greater than or equal to 60 mg/dL: High HDL cholesterol ( negative risk factor for CHD) HDL - cholesterol is affected by a number of factors, e.g. smoking, excerise, hormones, sex and age. CHOLESTEROL 164 0 - 240 mg/dL [facility] TRIGLYCERIDES 73 30 - 160 mg/dL [facility] LDL 80 50 - 129 mg/dL [facility] Comment: LDL levels in terms of risk for coronary heart disease: <100 mg/dL: Optimal 100-129 mg/dL: Near or above optimal 130-159 mg/dL: Borderline high 160-189 mg/dL: High >190 mg/dL: Very High CARDIAC RISK RATIO 2.4(L) 3.3 - 4.4 C [facility] Blood 03/15/2025 7:40 AM EDT 03/15/2025 7:46 AM EDT Lianna Youngblood [facility] LAB BLOOD ORDERABLES Final Result Performing Organization Address [facility] Co de Phone Number [address] [address] * BI MAMMOGRAM SCREENING WITH TOMOSYNTHESIS WITH CAD (BILATERAL) (06/08/2024 8:08 AM EST) Anatomical Region Laterality Modality Breast Left, Breast Right, Breast Bilateral Bila teral Mammography 06/08/2024 10:2 0 AM EST Impressions 06/08/2024 10:20 AM EST No mammographic evidence of malignancy in either breast. Annual screening mammography is recommended. BI-RADS 1 NEGATIVE The patient will be notified of the results and recommendations. Narrative 06/08/2024 10:20 AM EST BI MAMMOGRAM SCREENING WITH TOMOSYNTHESIS WITH CAD (BILATERAL) Additional patient information: Screening. COMPARISON: Comparison is made with relevant prior imaging. Breast composition: There are scattered areas of fibroglandular density. FINDINGS: No abnormal masses, suspicious calcifications, or other significant findings are identified mammographically in either breast. Procedure Note Gely York MD - 06/08/2024 BI MAMMOGRAM SCREENING WITH TOMOSYNTHESIS WITH CAD (BILATERAL) Additional patient information: Screening. COMPARISON: Comparison is made with relevant prior imaging. Breast composition: There are scattered areas of fibroglandular density. FINDINGS: No abnormal masses, suspicious calcifications, or other significantfindings are identified mammographically in either breast. IMPRESSION: No mammographic evidence of malignancy in either breast. Annual screening mammography is recommended. BI-RADS 1 NEGATIVE The patient will be notified of the results and recommendations. Brent Merrill MD IMG MG EXAMS Final Resu lt * OUTSIDE COLOGUARD (05/13/2021) Brent Merrill MD HEALTH MAINTENANCE Final R esult * Hepatitis C antibody, qualitative (01/26/2021 8:17 AM EDT) HCV NON-REACTIV E NON-REACTI VE [facility] Blood 01/26/2021 8:17 AM EDT 01/26/2021 8:29 AM EDT Brent Merrill MD LAB BLOOD ORDERABLES Final Result [facility] [address] [place] [address] from Last 3 Months or Most Recently Relevant to Health Maintenance Insurance HMO O O HMO O O O HMO Care Teams Dinkey Motor Operator Relationship Specialty Start Date End Date Brent Merrill MD [address] [place], [place] [address] [place] [address] PCP - General Internal Medicine 09/24/20 Aurelio Correa MD [address] [place] [address] [place] [address] Orthopedic Surgery 04/28/22 Additional Source Comments The information contained in this document represents components of the legal health record. It is not the complete legal health record.[facility]
== END 2025-04-19 09:56 | disposition home or self-care (01) ==
LOC: HO.HOS 09:27
DX: R29.898 Other symptoms and signs involving the musculoskeletal system (principal); M79.642 Pain in left hand
CPT/HCPCS: 99213

== ENCOUNTER 2025-05-22 08:52 | Outpatient (REF) | payer OTHER, SELFPAY ==
--- OUTSIDE RECORDS SUMMARY | 2011-04-08 | XMS_ITS | Encounter Summary ---
Author Organization [facility] Address [address] [employer] [facility] [address] [place] [address] Phone Care Team Providers Care Chimney Mechanic Name Role Phone Unavailable Primary Care Provider Unavailabl e Encounter Details Date Type Department Care Team (Late st Contact Info) Description 04/08/2011 Hospital Encounter [facility],Outside Imaging 30 [place], [place] [phone] System, Provider Not In, PhD Partners [address] [address] Social History Tobacco Use Types Packs/Day Years [...] high school, GED, job training, learning the Congolese language, technical skills, or developing parenting skills)? 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 [place] [address] 08/28/2025 10:00 AM EST Office Visit [facility] General Surgical Care [address] [place] [address] Lianna Brown, JOSE [address] [facility], 2nd [place] [address] [email or web address] 10/08/2025 9:30 AM EDT Office Visit [facility] Family Medicine [address] [place] [address] Brent Merrill MD [address] [facility], [address] [place] [address] [email or web address] documented as of this encounter Procedures Procedure Name Priority Date/Time Associated Diagnosis Comments BI MAMMOGRAM OUTSIDE (NO INTERPRETATION) Routine 04/08/2011 12:00 AM EDT documented in this encounter Results * Mammogram Outside (No Interpretation) (04/08/2011 12:00 AM EDT) Narrative SYSTEMGENERATED, DOCUMENTATION - 11/05/2021 12:00 PM EDT This study is for PACS storage only and not for interpretation. us Provider Not In System PhD IMG OUTSIDE [...] It is not the complete legal health record.[facility]
--- OUTSIDE RECORDS SUMMARY | 2011-04-20 | XMS_ITS | Encounter Summary ---
Author Organization [facility] Address [address] [employer] [facility] [address] [place] [address] Phone Care Team Providers Care Learning Administrator Name Role Phone Unavailable Primary Care Provider Unavailabl e Encounter Details Date Type Department Care Team (Late st Contact Info) Description 04/20/2011 Hospital Encounter [facility],Outside Imaging 30 [place], [place] [phone] System, Provider Not In, PhD Partners [address] [address] Social History Tobacco Use Types Packs/Day Years [...] high school, GED, job training, learning the Honduran language, technical skills, or developing parenting skills)? 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 [place] [address] 08/28/2025 10:00 AM EST Office Visit [facility] General Surgical Care [address] [place] [address] Lianna Brown, JOSE 15 [facility], 2nd [place] [address] [email or web address] 10/08/2025 9:30 AM EDT Office Visit [facility] Family Medicine [address] [place] [address] Brent Merrill MD 22 [facility], [address] [place] [address] [email or web address] documented as of this encounter Procedures Procedure [...] It is not the complete legal health record.[facility]
--- OUTSIDE RECORDS SUMMARY | 2012-06-09 01:00 | XMS_ITS | Encounter Summary ---
Author Organization [facility] Address [address] [employer] [facility] [address] [place] [address] Phone Care Team Providers Care Bilingual Case Manager Name Role Phone Unavailable Primary Care Provider Unavailabl e Encounter Details Date Type Department Care Team (Late st Contact Info) Description 06/09/2012 Hospital Encounter [facility],Outside Imaging [address] [place], [place] [phone] System, Provider Not In, PhD Partners [address] [address] Social History Tobacco Use Types Packs/Day Years [...] high school, GED, job training, learning the Liberian language, technical skills, or developing parenting skills)? 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 [place] [address] 08/28/2025 10:00 AM EST Office Visit [facility] General Surgical Care [address] [place] [address] Lianna Brown, JOSE 15 [facility], 2nd [place] [address] [email or web address] 10/08/2025 9:30 AM EDT Office Visit [facility] Family Medicine [address] [place] [address] Brent Merrill MD 22 [facility], [address] [place] [address] [email or web address] documented as of this encounter Procedures Procedure [...] not the complete legal health record.[facility]
--- OUTSIDE RECORDS SUMMARY | 2013-06-15 01:00 | XMS_ITS | Encounter Summary ---
Author Organization [facility] Address [address] [employer] [facility] [address] [place] [address] Phone Care Team Providers Care Collection Development Librarian Name Role Phone Unavailable Primary Care Provider Unavailabl e Encounter Details Date Type Department Care Team (Late st Contact Info) Description 06/15/2013 Hospital Encounter [facility],Outside Imaging 30 [place], [place] [phone] System, Provider Not In, PhD Partners [address] [address] Social History Tobacco Use Types Packs/Day Years [...] high school, GED, job training, learning the Nigerian language, technical skills, or developing parenting skills)? 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 [place] [address] 08/28/2025 10:00 AM EST Office Visit [facility] General Surgical Care [address] [place] [address] Lianna Brown, JOSE 15 [facility], 2nd [place] [address] [email or web address] 10/08/2025 9:30 AM EDT Office Visit [facility] Family Medicine [address] [place] [address] Brent Merrill MD 22 [facility], [address] [place] [address] [email or web address] documented as of this encounter Procedures Procedure [...] It is not the complete legal health record.[facility]
--- NOTE | 2025-05-22 08:55 | EMG_ITS ---
Chief complaint: Left head pain, mostly in the palm area and base of left thumb. Denies numbness or tingling. Reason for referral: Evaluate for Carpal Tunnel Syndrome Referred by: Brent CARBAJAL Procedure done: Left upper extremity NCS Precautions and/or limitations: Patient tends to get dizzy with needles. She denies any neck pain. Needle EMG deferred. The limb temperature was monitored continuously and remained between 32-36 degrees C during the performance of the NCS. Nerve Conduction Studies Anti Sensory Summary Table ?Stim Site NR Onset (ms) Norm Onset (ms) Peak (ms) Norm Peak (ms) O-P Amp (?V) Norm O-P Amp Site1 Site2 Delta-0 (ms) Dist (cm) Thompson (m/s) Norm Thompson (m/s) Left Median Anti Sensory (2nd Digit) Wrist ? 2.1 2.9 <3.6 70.6 >10 Wrist 2nd Digit 2.1 14.0 67 Left Ulnar Anti Sensory (5th Digit) Wrist ? 2.3 3.0 <3.7 50.2 >15.0 Wrist 5th Digit 2.3 14.0 61 Motor Summary Table ?Stim Site NR Onset (ms) Norm Onset (ms) O-P Amp (mV) Norm O-P Amp iAmp (mV) Amp (1st) (%) Site1 Site2 Delta-0 (ms) Dist (cm) Thompson (m/s) Norm Thompson (m/s) Left Median Motor (Abd Poll Brev) Wrist ? 3.2 <3.9 8.2 >4.5 10.4 100.0 Elbow Wrist 3.6 19.0 53 >45 Elbow ? 6.8 7.5 9.4 91.5 Left Ulnar Motor (Abd Dig Minimi) Wrist ? 2.8 <3.0 6.4 >5 8.2 100.0 B Elbow Wrist 3.0 17.0 57 >45 B Elbow ? 5.8 6.1 7.9 95.3 A Elbow B Elbow 1.3 10.0 77 >45 A Elbow ? 7.1 5.5 7.3 85.9 Comparison Summary Table ?Stim Site NR Peak (ms) Norm Peak (ms) P-T Amp (?V) Site1 Site2 Delta-P (ms) Norm Delta (ms) Left Median/Radial Dig I Comparison (Digit 1 - 10cm) Median ? 2.3 <2.9 114.8 Median Radial 0.0 Radial ? 2.3 <2.8 40.2 FINDINGS: All motor and sensory nerves tested showed normal latencies, amplitudes and conduction velocities. IMPRESSION: 1. This is a normal nerve conduction study. 2. There is no electrodiagnostic evidence for median neuropathy or ulnar neuropathy. Thank you for your kind referral. Ledy Valdes MD, NANY Board Certified, [place] Board [employer] Medicine and Rehabilitation (ABPMR) Board Certified, [place] Board of Electrodiagnostic Medicine (ABEM) CODIN MTDD
--- OUTSIDE RECORDS SUMMARY | 2025-05-22 09:34 | XMS_ITS | Encounter Summary ---
Author Organization [facility] Address [address] [facility] [address] [place] [id number] Phone Care Team Providers Care Hat Body Sorter Name Role Phone Brent Merrill MD Primary Care Provider [phone] Aurelio Correa MD Unavailable [phone] Encounter Details Date Type Department Care Team (Late st Contact Info) Description 10/29/2021 Procedure [facility] [address] [place] [address] Social History Tobacco Use Types Packs/Day Years [...] high school, GED, job training, learning the Bermudian language, technical skills, or developing parenting skills)? [...] Info) Description 06/11/2025 9:30 AM EST Nutrition [facility] General Surgical Care [address] [place] [address] [place] [address] Suzy Finney LDN [address] [place] [address] [address]. [address] [place] [address] 08/28/2025 10:00 AM EST Office Visit [facility] General Surgical Care [address] [place] [address] [place] [address] Lianna Brown, BROKE MAN [address], 2nd [place] [address] 10/08/2025 9:30 AM EDT Office Visit [facility] Family Medicine [address] [place] [address] Brent Merrill MD [address], [address] [place] [address] documented as of this encounter Visit Diagnoses Not on filedocumented in this encounter Additional Health Concerns Infection Onset Date Last Indicated Resolved Time CoV-Risk 12/07/2022 12/07/2022 12/18/2022 1:25 AM EDT COVID-19 06/01/2023 06/01/2023 06/22/2023 1:21 AM EST CoV-Risk 11/02/2024 11/02/2024 11/13/2024 1:23 AM EDT Assessment Noted Time PHQ-2 Depression Total Score: 0 01/20/20 10:30 AM EDT documented as of this encounter Care Teams Hat Body Sorter Relationship Specialty Start Date End Date Brent Merrill MD [address] [place] [address], [address] [place] [address] [email or web address] PCP - General Internal Medicine 09/24/20 Aurelio Correa MD [address] [place] [address] [place] [address] Orthopedic Surgery 04/28/22 documented as of this encounter Additional Source Comments The information contained in this document represents components of the legal health record. It is not the complete legal health record.[facility]
--- OUTSIDE RECORDS SUMMARY | 2025-05-22 09:34 | XMS_ITS | Encounter Summary ---
Author Organization [facility] Address [address] [place] [address] [address] [place] [address] Phone Care Team Providers Care Surgical Elastic Knitter Hand Frame Name Role Phone Brent Merrill MD Primary Care Provider [phone] Aurelio Correa MD Unavailable [phone] Encounter Details Date Type Department Care Team (Latest Contact Info) Description 10/29/2021 Transcribe Orders Virtual Department [address] [place] [address] Brent Merrill MD [address] [facility], [address] [place] [address] [email or web address] Breast screening (Primary Dx) Social [...] high school, GED, job training, learning the Thai language, technical skills, or developing parenting skills)? [...] Info) Description 06/11/2025 9:30 AM EST Nutrition [facility] General Surgical Care [address] [place] [address] [place] [address] Suzy Finney LDN [address] [place] [address] 08/28/2025 10:00 AM EST Office Visit [facility] General Surgical Care [address] [place] [address] Lianna Brown, JOSE [address] [facility], 2nd [place] [address] 10/08/2025 9:30 AM EDT Office Visit [facility] [address] [place] [address] Brent Merrill MD [address] [facility] [place] [address] [email or web address] documented as of this encounter Results * [...] documented as of this encounter Care Teams Surgical Elastic Knitter Hand Frame Relationship Specialty Start Date End Date Brent Merrill MD [address] [place] [address], [address] [place] [address] PCP - General Internal Medicine 09/24/20 Aurelio Correa MD [address] [place] [address] Dr [address] [place] [id number] Orthopedic Surgery 04/28/22 documented as of this encounter Additional Source Comments The information contained in this document represents components of the legal health record. It is not the complete legal health record.[facility]
--- OUTSIDE RECORDS SUMMARY | 2025-05-22 09:34 | XMS_ITS | Encounter Summary ---
Author Organization [facility] Address [address] [facility] [address] [place] [address] Phone Care Team Providers Care Coal Pipeline Operator Name Role Phone Brent Merrill MD Primary Care Provider [phone] Aurelio Correa MD Unavailable [phone] Encounter Details Date Type Department Care Team (Late st Contact Info) Description 11/05/2021 Ancillary Orders [facility],Outside Imaging [address] [place] [address] System, Provider Not In, [facility] [address] [address] Social History Tobacco Use Types Packs/Day Years [...] high school, GED, job training, learning the Maori language, technical skills, or developing parenting skills)? 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 [place] [address] 08/28/2025 10:00 AM EST Office Visit [facility] General Surgical Care [address] [place] [address] Lianna Brown, ORTHODONTIST ASSISTANT [address] [facility], 2nd [place] [address] 10/08/2025 9:30 AM EDT Office Visit [facility] Family Medicine [address] [place] [address] Brent Merrill MD [address] [place] [address], [address] [place] [address] [email or web address] documented as of this encounter Results * [...] documented as of this encounter Care Teams Coal Pipeline Operator Relationship Specialty Start Date End Date Brent Merrill MD [address] [place] [address], [address] [place] [address] PCP - General Internal Medicine 09/24/20 Aurelio Correa MD [address] [place] [address] [place] [address] Orthopedic Surgery 04/28/22 documented as of this encounter Additional Source Comments The information contained in this document represents components of the legal health record. It is not the complete legal health record.[facility]
--- OUTSIDE RECORDS SUMMARY | 2025-05-22 09:36 | XMS_ITS | Clinical Summary ---
Author Organization [facility] Address [address] [place] [address] Phone Care Team Providers Care Machine Inspector Name Role Phone Brent Merrill MD Primary Care Provider [phone] Aurelio Correa MD Unavailable [phone] Allergies Active Allergy Reactions Criticality Noted Date Comments Doxycycline Monohydrate Hives 01/16/2023 Latex Hives 09/24/2020 Other 05/28/2022 Flu vaccine Nirmatrelvir-Ritonavir Diarrhea 06/13/2023 Penicillins Hives 09/24/2020 Sulfa (Sulfonamide Antibiotics) Hives 09/24/2020 Lips and tongue swell Medications cetirizine (ZYRTEC) 10 MG tablet Take 5 mg by mouth daily. Active EPINEPHrine 0.3 mg/0.3 mL auto-injector Inject 0.3 mg into the muscle as needed for anaphylaxis . Active acetaminophen (TYLENOL) 325 mg tablet Take [...] times a week. 28 patch 3 11/30/19 25 Active therapeutic multivitamin tablet Take 1 tablet by mouth daily. Active cyanocobalamin, vitamin B-12, 1000 MCG tablet Take 1,000 mcg by mouth daily. Active semaglutide, weight loss, (WEGOVY) 1 mg/0.5 mL subcutaneous injectionIndicat ions:Class 3 severe obesity with serious comorbidity and body mass index (BMI) of 40.0 to 44.9 in adult, unspecified obesity type Inject 0.5 mL (1 mg total) under the skin every 7 days. 2 mL 05/08/20 25 Active enoxaparin (LOVENOX) 40 mg/0.4 mL Syrg subcutaneous syringe Inject 0.4 mL under the skin daily. 05/28/20 22 022 Discontinued(No longer taking) semaglutide, weight loss, (WEGOVY) 0.25 mg/0.5 mL subcutaneous pen injectionIndicat ions:Class 3 severe obesity with serious comorbidity and body mass index (BMI) of 40.0 to 44.9 in adult Inject 0.5 mL (0.25 mg total) under the skin every 7 days. 2 mL 03/12/20 25 025 Discontinued semaglutide, weight loss, (WEGOVY) 0.5 mg/0.5 mL subcutaneous injection Inject 0.5 mL (0.5 mg total) under the skin every 7 days. 2 mL 04/02/20 25 025 Discontinued Active Problems Problem Noted Date Diagnosed Date [...] will schedule follow-up appointment with vascular at [facility]. Class 3 severe obesity with serious comorbidity and body mass index (BMI) of 40.0 to 44.9 in adult 01/22/2021 Overview (03/12/2025): WHO class 3, AACE 0 Assessment & Plan (05/08/2025 10:24 AM EDT): Increase Wegovy to 1 mg. Continue to add more strength training. She is doing a good job with diet. She has a follow-up with RD and she will follow-up with me in 3 months. Assessment & Plan (03/12/2025 4:57 PM EDT): [...] obesity medicine and work with a registered dietetic technician. We will continue monitoring the patient's clinical [...] summer after she returns from [facility]. She will follow-up as planned with orthopedics [...] Encounters Date Type Department Care Team Description 05/08/2025 10:15 AM EDT Office Visit [facility] General Surgical Care [address] [place] [address] [place] [address] Lianna Brown, JOSE Class 3 severe obesity with serious comorbidity and body mass index (BMI) of 40.0 to 44.9 in adult, unspecified obesity type (Primary Dx) 04/10/2025 10:00 AM EDT Nutrition [facility] General [facility] [address] [place] [address] [place] [address] Suzy Finney LDN Morbid obesity with BMI of 40.0-44.9, adult (Primary Dx) 03/15/2025 7:08 AM EDT - 03/15/2025 11:59 PM EDT Hospital Encounter [facility] [address] [place] [address] Lianna Brown CNP Discharge Disposition: Home or Self Care 03/15/2025 Orders Only [facility] [address] [place] [address] Brent Merrill MD 03/12/2025 4:15 PM EDT Office Visit [facility] [address] [place] [place] [address] Brent Merrill MD Essential hypertension (Primary Dx); Class 3 severe obesity with serious comorbidity and body mass index (BMI) of 40.0 to 44.9 in adult; Menopausal vasomotor syndrome 03/12/2025 11:00 AM EDT Office Visit [facility] General Surgical Care [address] [place] [address] Lianna Brown CNP Class 3 severe obesity [...] housing situation today? I have ye sing 09/11/2024 How many times have you move [...] Sign Reading Time Taken Comments Blood Pressure 112/64 05/08/2025 9:00 AM EDT Pulse 80 05/08/2025 9:00 AM EDT Temperature 36.6 C (97.8 F) 05/08/2025 9:00 AM EDT Respiratory Rate 18 08/27/2024 10:51 AM EST Oxygen Saturation 98% 05/08/2025 9:00 AM EDT Inhaled Oxygen Concentration - - Weight 106 kg (233 lb 9.6 oz) 05/08/2025 9:00 AM EDT Height 160 cm (5' 2.99 ) 05/08/2025 9:00 AM EDT Body Mass Index 41.39 05/08/2025 9:00 AM EDT Plan of Treatment Upcoming Encounters Date Type Department Care Team (Late st Contact Info) Description 06/11/2025 9:30 AM EST Nutrition [facility] General Surgical Care [address] [place] [address] [place] [address] Suzy Finney LDN [address] [place] [address] 08/28/2025 10:00 AM EST Office Visit [facility] General Surgical Care [address] [place] [address] [place] [address] Lianna Brown, SHEAR OPERATOR [address] [facility], 2nd [place] [address] 10/08/2025 9:30 AM EDT Office Visit [facility] [address] [place] [address] Brent Merrill MD [address] [facility], [address] [place] [address] Health Maintenance Due Date Last Done Comments COLONOSCOPY 10/19/2012 FIT TEST 10/19/2012 FOBT 10/19/2012 SIGMOIDOSCOPY 10/19/2012 VIRTUAL COLONOSCOPY 10/19/2012 PNEUMOCOCCAL VACCINES (50+ years) (1 of 1 - PCV) 10/19/2017 RSV VACCINE (1 - Risk 50-74 years 1-dose series) 10/19/2017 ZOSTER VACCINES (1 of 2) 10/19/2017 Adult Td,Tdap Booster 02/27/2025 02/27/2015 INFLUENZA VACCINE (#1) 2025 COVID-19 VACCINE ( season) 2025 05/10/2022, 07/07/2021, 11/15/2020, Additional history exists DEPRESSION SCREENING 09/11/2025 09/11/2024 BLOOD PRESSURE 11/06/2025 05/08/2025 CREATININE LEVEL 03/15/2026 03/15/2025, 10/2024, 02/10/2024, Additional history exists POTASSIUM LEVEL 03/15/2026 03/15/2025, 04/0 10/2024, 02/10/2024, Additional history exists MAMMOGRAM 06/08/2026 06/08/2024, 05/0 09/2021, 09/22/2018, Additional history exists SCREENING FOR DIABETES 03/15/2028 03/15/2025, 2024 COLOGUARD 04/29/2028 04/29/2025, 05/13/2021 COLORECTAL CANCER SCREENING 04/29/2028 LIPID PANEL 03/15/2030 03/15/2025, 01/26/2021 HEPATITIS C SCREENING Completed 01/26/2021 HIV ONE-TIME SCREENING (18-65 YEARS) Completed 01/26/2021 SMOKING STATUS SCREENING (Once After 26 Yrs) Completed 05/08/2025 HEPATITIS A VACCINES Aged Out No long [...] Procedure Name Priority Date/Time Associated Diagnosis Comments COLOGUARD (This [employer]) Routine 04/29/2025 10:00 AM EDT 25-OH VITAMIN D Routine 03/15/2025 7:40 AM [...] Recently Relevant to Health Maintenance Results * COLOGUARD ([employer]) (04/29/2025 10:00 AM EDT) Cologuard Results Negative Negative 025 3:46 PM EDT [facility] (CLIA #:[id number]) Comment: The Cologuard (TM) test was performed on this specimen. NEGATIVE TEST RESULT. A negative Cologuard result indicates a low likelihood that a colorectal cancer (CRC) or advanced adenoma (adenomatous polyps with more advanced pre-malignant features) is present. The chance that a person with a negative Cologuard test has a colorectal cancer is less than 1 in 1500 (negative predictive value >99.9%) or has an advanced adenoma is less than 5.3% (negative predictive value 94.7%). These data are based on a prospective cross-sectional study of 10,000 individuals at average risk for colorectal cancer who were screened with both Cologuard and colonoscopy. (Will Patricio al, N Engl J Med 2014;370(14):1286- 1297) The normal value (reference range) for this assay is negative. COLOGUARD RE-SCREENING RECOMMENDATION: Periodic colorectal cancer screening is an important part of preventive healthcare for asymptomatic individuals at average risk for colorectal cancer. Following a negative Cologuard result, the [place] Cancer Society and U.S. Multi-Society Task Force screening guidelines recommend a Cologuard re-screening interval of 3 years. References: [place] [employer] Society Guideline for Colorectal Cancer Screening: https://www.cancer.org/cancer/jpaqm-kmdmnt-kfuacl/ljhcowvcv-fxwfuyfbf-wkfmkcb/ac s-rec ommendations.html.; Grayson DK, Alban CR, Willem BlountK, Colorectal Cancer Screening: Recommendations for Physicians and Patients from the U.S. Multi-Society Task Force on Colorectal Cancer Screening , Am J Gastroenterology 2017; 112:2427-5028. TEST DESCRIPTION: Composite algorithmic analysis of stool DNA-biomarkers with hemoglobin immunoassay. Quantitative values of individual biomarkers are not reportable and are not associated with individual biomarker result reference ranges. Cologuard is intended for colorectal cancer screening of adults of either sex, 45 years or older, who are at average-risk for colorectal cancer (CRC). Cologuard has been approved for use by the U.S. FDA. The performance of Cologuard was established in a cross sectional study of average-risk adults aged 50-84. Cologuard performance in patients ages 45 to 49 years was estimated by sub-group analysis of near-age groups. Colonoscopies performed for a positive result may find as the most clinically significant lesion: colorectal cancer [4.0%], advanced adenoma (including sessile serrated polyps greater than or equal to 1cm diameter) [20%] or non- advanced adenoma [31%]; or no colorectal neoplasia [45%]. These estimates are derived from a prospective cross-sectional screening study of 10,000 individuals at average risk for colorectal cancer who were screened with both Cologuard and colonoscopy. (Will Patricio al, N Engl J Med 2014;370(14):5638-8793.) Cologuard may produce a false negative or false positive result (no colorectal cancer or precancerous polyp present at colonoscopy follow up). A negative Cologuard test result does not guarantee the absence of CRC or advanced adenoma (pre-cancer). The current Cologuard screening interval is every 3 years. ([place] Cancer Society and U.S. Multi-Society Task Force). Cologuard performance data in a 10,000 patient pivotal study using colonoscopy as the reference method can be accessed at the following location: www.[employer].MuckRock/results. Additional description of the Cologuard test process, warnings and precautions can be found at www.[employer]uckRock. Stool (Per Rectum) 04/29/2025 10:00 AM EDT 04/30/2025 10:41 AM EDT us Brent Merrill MD BODY FLUIDS AND STOOLS ORD ERABLES Final Result [facility] (CLIA #:[id number]) [address] [place] [id number], [facility] [phone] * (ABNORMAL) Comprehensive metabolic panel (03/15/2025 7:40 AM EDT) SODIUM 139 133 - 146 mmol/L [facility] POTASSIUM 3.9 3.3 - 5.1 mmol/L [facility] CHLORIDE 104 96 - 108 mmol/L [facility] CO2 21 21 - 35 mmol/L [facility] BUN 13 6 - 19 mg/dL [facility] CREATININE 0.60 0.5 - 1.5 mg/dL [facility] GLUCOSE 106(H) 70 - 99 mg/dL [facility] ALBUMIN 4.3 3.9 - 4.8 g/dL [facility] TOTAL PROTEIN 7.4 6.5 - 8.0 g/dL [facility] CALCIUM 9.4 8.4 - 10.3 mg/dL [facility] ALKALINE PHOSPHATASE 79 39 - 117 U/L [facility] TOTAL BILIRUBIN 0.6 0.0 - 1.2 mg/dL [facility] AST 19 0 - 37 U/L [facility] ALT 20 0 - 40 U/L [facility] GLOBULIN 3.1 1 - 4.8 g/dL [facility] EGFR 105 >59 mL/min/1.7 3m2 [facility] Comment:Estimated glomerular filtration rate calculated using the CKD-EPI refit equation. ANION GAP 18 10 - 20 mmol/L [facility] Blood 03/15/2025 7:40 AM EDT 03/15/2025 7:47 AM EDT Lianna Youngblood [facility] LAB BLOOD ORDERABLES Final Result Performing Organization Address City/[facility]/ZIP Co de Phone Number [address] [address] * TSH with reflex (03/15/2025 7:40 AM EDT) TSH 1.84 0.27 - 4.20 uIU/mL [facility] Blood 03/15/2025 7:40 AM EDT 03/15/2025 7:47 AM EDT [facility] Final Result [address] [address] * 25-OH vitamin D (03/15/2025 7:40 AM EDT) 25 OH VIT D (TOTAL) 35 30 - 60 ng/mL [facility] Blood 03/15/2025 7:40 AM EDT 03/15/2025 7:47 AM EDT [facility] Final Result [address] [address] * Insulin Level (03/15/2025 7:40 AM EDT) INSULIN 15.6 2.6 - 25.0 uIU/mL [facility] Blood 03/15/2025 7:40 AM EDT 03/15/2025 7:46 AM EDT [facility] Final Result Performing Organization Address City/[facility]/ZIP Co de Phone Number [address] [address] * (ABNORMAL) Hemoglobin A1c (03/15/2025 7:40 AM EDT) HEMOGLOBIN A1C 6.0(H) 4.3 - 5.8 % [facility] Blood 03/15/2025 7:40 AM EDT 03/15/2025 7:46 AM EDT [facility]LOOD [facility]ABLES Final Result Performing Organization Address [facility] Co de Phone Number [address] [address] * (ABNORMAL) Lipid panel (03/15/2025 7:40 AM EDT) HDL 69 mg/dL [facility] Comment: Interpretation <40 mg/dL: Low HDL cholesterol (major risk factor for CHD) Greater than or equal to 60 mg/dL: High HDL cholesterol ( negative risk factor for CHD) HDL - cholesterol is affected by a number of factors, e.g. smoking, excerise, hormones, sex and age. CHOLESTEROL 164 0 - 240 mg/dL [facility] TRIGLYCERIDES 73 30 - 160 mg/dL [facility] LDL 80 50 - 129 mg/dL [facility] Comment: LDL levels in terms of risk for coronary heart disease: <100 mg/dL: Optimal 100-129 mg/dL: Near or above optimal 130-159 mg/dL: Borderline high 160-189 mg/dL: High >190 mg/dL: Very High CARDIAC RISK RATIO 2.4(L) 3.3 - 4.4 C [facility] Blood 03/15/2025 7:40 AM EDT 03/15/2025 7:46 AM EDT Lianna Brown [facility] LAB BLOOD ORDERABLES Final Result [address] [address] * BI MAMMOGRAM SCREENING WITH TOMOSYNTHESIS WITH [...] be notified of the results and recommendations. us Brent Merrill MD IMG MG EXAMS Final Resu lt * OUTSIDE COLOGUARD (05/13/2021) us Brent Merrill MD HEALTH MAINTENANCE Final R esult * Hepatitis C antibody, qualitative (01/26/2021 8:17 AM EDT) HCV NON-REACTIV E NON-REACTI VE [facility] Blood 01/26/2021 8:17 AM EDT 01/26/2021 8:29 AM EDT us Brent Merrill MD LAB BLOOD ORDERABLES Final Result [address] [address] from Last 3 Months or Most Recently Relevant to Health Maintenance Insurance [address] [place], [place] [id number] HMO HMO HMO HMO Care Teams Machine Inspector Relationship Specialty Start Date End Date Brent Merrill MD [address] [place] [address], [address] [place] [address] PCP - General Internal Medicine 09/24/20 Aurelio Correa MD [address] [place] [address] Orthopedic Surgery 04/28/22 Additional Source Comments The information contained in this document represents components of the legal health record. It is not the complete legal health record.[facility]
--- OUTSIDE RECORDS SUMMARY | 2025-05-22 09:36 | XMS_ITS | Patient Health Record ---
Author Organization [facility] Address [address] [place] [phone] Care Team Providers Care Bench Worker Apprentice Name Role Phone Han Garcia Primary Care Provider UnavailBrendon Combs Unavailable [phone] Reason For Referral No Information Plan Of Treatment No Information Insurance Providers Payer Name Payer Address Payer Phone Subscriber Number Group Number Insured Name Patient Relationship to Insured Coverage Start Date Coverage End Date [facility] [address] [place] [phone] [id number] LUANNE OLGUIN Self - patient is the insured
--- OUTSIDE RECORDS SUMMARY | 2025-05-22 09:37 | XMS_ITS | Encounter Summary ---
Author Organization [facility] Address [address] [facility] [address] [place] [address] Phone Care Team Providers Care Cloth Spreader Screen Printing Name Role Phone Brent Merrill MD Primary Care Provider [phone] Aurelio Correa MD Unavailable [phone] Encounter Details Date Type Department Care Team (Late st Contact Info) Description 02/21/2024 Procedure Pass [facility] [address] [place] [address] Social History Tobacco Use Types Packs/Day Years [...] high school, GED, job training, learning the [place]uvian language, technical skills, or developing parenting skills)? [...] [facility] Surgical Care [address] [place] [address] Suzy Finney LDN [address] [place] [address] 08/28/2025 10:00 AM EST Office Visit [facility] General Surgical Care [address] [place] [address] Lianna Brown, JOSE [address] [facility], 2nd [place] [address] 10/08/2025 9:30 AM EDT Office Visit [facility] [address] [place] [address] Brent Merrill MD [address] [facility] [place] [address] documented as of this encounter Visit Diagnoses Not on filedocumented in this encounter Additional Health Concerns Infection Onset Date Last Indicated Resolved Time CoV-Risk 11/02/2024 11/02/2024 11/13/2024 1:23 AM EDT Assessment Noted Time PHQ-2 Depression Total Score: 0 08/09/19 24 8:10 AM EST documented as of this encounter Care Teams Cloth Spreader Screen Printing Relationship Specialty Start Date End Date Brent Merrill MD [address] [place] [address], [address] [place] [address] PCP - General Internal Medicine 09/24/20 Aurelio Correa MD [address] [place] [address] [place] [address] Orthopedic Surgery 04/28/22 documented as of this encounter Additional Source Comments The information contained in this document represents components of the legal health record. It is not the complete legal health record.[facility]
== END 2025-05-22 08:53 | disposition home or self-care (01) ==
LOC: HO.NEURO 08:52
DX: R20.0 Anesthesia of skin (principal); R20.2 Paresthesia of skin; M79.642 Pain in left hand
CPT/HCPCS: 95909

== ENCOUNTER → 2025-05-22 08:55 | Outpatient (BNV) | payer OTHER, SELFPAY | PROVIDERS: Visit Provider Physical Medicine & Rehabilitation | DX: M79.642 Pain in left hand (principal) | CPT/HCPCS: 95909 ==

== ENCOUNTER 2025-06-25 15:04 | Outpatient (AMB) | payer OTHER, SELFPAY ==
--- OUTSIDE RECORDS SUMMARY | 2011-04-07 23:00 | XMS_ITS | Encounter Summary ---
Author Organization [facility] Address [address] [facility] [address] [place] [address] Phone Care Team Providers Care Thumb Sewer Name Role Phone Unavailable Primary Care Provider Unavailabl e Encounter Details Date Type Department Care Team (Late st Contact Info) Description 04/08/2011 Hospital Encounter [facility],Outside Imaging 30 [place], [place] [phone] System, Provider Not In, PhD Partners [address] [address] Social History Tobacco Use Types Packs/Day Years Used Date Smoking Tobacco: Never Smokeless Tobacco: Never Alcohol Use Standard Drinks/Week Comments Not Currently 0 (1 standard drink = 0.6 oz pur e alcohol) Child or Family Care Answer Date Record ed Do you have problems with on e of the following making it difficult for you to work, study, or receive health care? No 09/11/2024 Education Answer Date Recorded Are you interested in help w ith more adult education (for example, completing high school, GED, job training, learning the Ghanaian language, technical skills, or developing parenting skills)? No 09/11/2024 Are you concerned about learning? Not on file 09/11/2024 No 09/11/2024 Yes 09/11/2024 Food Answer Date Recorded Within the past 6 months we worried whether our food would run out before we got money to buy more. Never True 09/11/2024 Within the past 6 months the food we bought just didn't last and we didn't have enough money to get more. Never True Residential Stability Answer Date Recor ded What is your housing situation today? I have ye lambert 09/11/2024 How many times have you move d in the past 12 months? Zero (I did not move) 09/11/2024 Paying for Meds Answer Date Recorded Do you have trouble paying for medicines? No 09/11/2024 Paying Utility Bills Answer Date Record ed Do you have trouble paying your heating or elect ricity bill? No 09/11/2024 Transportation Answer Date Recorded Has the lack of transportati on kept you from medical appointments or from getting medications? No 09/11/2024 Unemployment Answer Date Recorded Are you currently unemployed or working on a part-time or temporary basis, and looking for work? No 01/19/2021 Digital Access Answer Date Recorded No 09/11/2024 Yes 09/11/2024 Do you have reliable internet access at home? Ye s 09/11/2024 Do you have a device (e.g., phone, tablet, computer) with a working camera? Yes 09/11/2024 Intimate Partner Violence Answer Date R ecorded Denied Basic Needs Not on file 09/11/2024 In the past 12 months have y ou been in a relationship with a person who hurts, threatens, or tries to control you? No 09/11/2024 Worried food would run out Not on file 09/11 In the past 12 months have y ou been in a relationship with a person who hurts, threatens, or tries to control you? 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 Giang Not on file Not on file Not on file documented as of this encounter Plan of Treatment Upcoming Encounters Date Type Department Care Team (Late st Contact Info) Description 08/28/2025 10:00 AM EST Office Visit [facility] Care [address] [place] [address] Lianna Brown, HOUSE WORKER GENERAL [address] [facility], 2nd [place] [address] 10/08/2025 9:30 AM EDT Office Visit [facility] [address] [place] [address] Brent Merrill MD [address] [facility], [address] [place] [address] documented as of this encounter Procedures Procedure Name Priority Date/Time Associated Diagnosis Comments BI MAMMOGRAM OUTSIDE (NO INTERPRETATION) Routine 04/08/2011 12:00 AM EDT documented in this encounter Results * Mammogram Outside (No Interpretation) (04/08/2011 12:00 AM EDT) Narrative SYSTEMGENERATED, DOCUMENTATION - 11/05/2021 12:00 PM EDT This study is for PACS storage only and not for interpretation. Provider Not In System PhD IMG OUTSIDE IMAGING W /OUT INTERPRETATION Final Result documented in this encounter Visit Diagnoses Not on filedocumented in this encounter Additional Health Concerns Infection Onset Date Last Indicated Resolved Time CoV-Risk 08/18/2021 08/18/2021 08/28/2021 1:24 AM EST CoV-Exposed Comment:Recent close contact documented in the COVID-19 PCR/PRO order 08/18/2021 08/18/2021 08/29/2021 1:[address] CoV-Risk 12/07/2022 12/07/2022 12/18/2022 1:25 AM EDT COVID-19 06/01/2023 06/01/2023 06/22/2023 1:21 AM EST CoV-Risk 11/02/2024 11/02/2024 11/13/2024 1:23 AM EDT documented as of this encounter Additional Source Comments The information contained in this document represents components of the legal health record. It is not the complete legal health record.[facility]
--- OUTSIDE RECORDS SUMMARY | 2011-04-19 23:00 | XMS_ITS | Encounter Summary ---
Author Organization [facility] Address [address] [facility] [address] [place] [address] Phone Care Team Providers Care Exploration Manager Name Role Phone Unavailable Primary Care Provider Unavailabl e Encounter Details Date Type Department Care Team (Late st Contact Info) Description 04/20/2011 Hospital Encounter [facility],Outside Imaging 30 [place], [place] [phone] System, Provider Not In, PhD Partners [address] [address] Social History Tobacco Use Types Packs/Day Years [...] high school, GED, job training, learning the Nepalese language, technical skills, or developing parenting skills)? 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 Giang Not on file Not on file Not on file documented as of this encounter Plan of Treatment Upcoming Encounters Date Type Department Care Team (Late st Contact Info) Description 08/28/2025 10:00 AM EST Office Visit [facility] General Surgical Care [address] [place] [address] Lianna Brown, ROVING MARKER 15 [facility], 2nd [place] [address] 10/08/2025 9:30 AM EDT Office Visit [facility] [address] [place] [address] Brent Merrill MD 22 [facility], [address] [place] [address] documented as of this encounter Procedures Procedure Name Priority Date/Time Associated Diagnosis Comments BI MAMMOGRAM OUTSIDE (NO INTERPRETATION) Routine 04/20/2011 12:00 AM EDT documented in this encounter Results * Mammogram Outside (No Interpretation) (04/20/2011 12:00 AM EDT) Narrative SYSTEMGENERATED, DOCUMENTATION - 11/05/2021 11:59 AM EDT This study is for PACS storage [...] It is not the complete legal health record.[facility]
--- OUTSIDE RECORDS SUMMARY | 2012-06-09 | XMS_ITS | Encounter Summary ---
Author Organization [facility] Address [address] [employer] [facility] [address] [place] [address] Phone Care Team Providers Care Capacity Management Specialist Name Role Phone Unavailable Primary Care Provider Unavailabl e Encounter Details Date Type Department Care Team (Late st Contact Info) Description 06/09/2012 Hospital Encounter [facility],Outside Imaging 30 [place], [place] [phone] System, Provider Not In, PhD Partners [address] [address] Social History Tobacco Use Types Packs/Day Years [...] high school, GED, job training, learning the Vincentian language, technical skills, or developing parenting skills)? [...] is your housing situation today? 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 Giang Not on file Not on file Not on file documented as of this encounter Plan of Treatment Upcoming Encounters Date Type Department Care Team (Late st Contact Info) Description 08/28/2025 10:00 AM EST Office Visit [facility] General Surgical Care [address] [place] [address] Lianna Brown, SUPERVISOR MALT HOUSE 15 [facility], 2nd [place] [address] 10/08/2025 9:30 AM EDT Office Visit [facility] [address] [place] [address] Brent Merrill MD 22 [facility], [address] [place] [address] documented as of this encounter Procedures Procedure Name Priority Date/Time Associated Diagnosis Comments BI MAMMOGRAM OUTSIDE (NO INTERPRETATION) Routine 06/09/2012 12:00 AM EST documented in this encounter Results * Mammogram Outside (No Interpretation) (06/09/2012 12:00 AM EST) Narrative SYSTEMGENERATED, DOCUMENTATION - 11/05/2021 11:58 AM EDT This study is for PACS [...] It is not the complete legal health record.[facility]
--- OUTSIDE RECORDS SUMMARY | 2013-06-15 | XMS_ITS | Encounter Summary ---
Author Organization [facility] Address [address] [employer] [facility] [address] [place] [address] Phone Care Team Providers Care Strategic Analyst Name Role Phone Unavailable Primary Care Provider Unavailabl e Encounter Details Date Type Department Care Team (Late st Contact Info) Description 06/15/2013 Hospital Encounter [facility],Outside Imaging 30 [place], [place] [phone] System, Provider Not In, PhD Partners [address] [address] Social History Tobacco Use Types Packs/Day Years [...] high school, GED, job training, learning the Montserratian language, technical skills, or developing parenting skills)? 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 Giang Not on file Not on file Not on file documented as of this encounter Plan of Treatment Upcoming Encounters Date Type Department Care Team (Late st Contact Info) Description 08/28/2025 10:00 AM EST Office Visit [facility] General Surgical Care [address] [place] [address] Lianna Brown, WOODEN BOAT BUILDER 15 [facility], 2nd [place] [address] 10/08/2025 9:30 AM EDT Office Visit [facility] [address] [place] [address] Brent Merrill MD 22 [facility], [address] [place] [address] documented as of this encounter Procedures Procedure Name Priority Date/Time Associated Diagnosis Comments BI MAMMOGRAM OUTSIDE (NO INTERPRETATION) Routine 06/15/2013 12:00 AM EST documented in this encounter Results * Mammogram Outside (No Interpretation) (06/15/2013 12:00 AM EST) Narrative SYSTEMGENERATED, DOCUMENTATION - [...] It is not the complete legal health record.[facility]
[2025-06-25 15:13] VITALS: BMI 41.8
--- NOTE | 2025-06-25 15:13 | MHC.OFFVIS ---
Vital Signs 06/25/25 15:13 Height 5 ft 3 in Weight 236 lb BMI 41.8 Intake Visit Reasons: Est Patient- EMG review Intake Note: Jes is a 59 year old right hand dominant woman who presents today for an EMG Review due to her pain and weakness in the median nerve distribution of the left hand and wrist. Patient reports today she does not have any numbness or tingling. IMPRESSION 05/22/25: 1. This is a normal nerve conduction study. 2. There is no electrodiagnostic evidence for median neuropathy or ulnar neuropathy. Allergies Influenza Virus Vaccines Allergy (Severe, Verified 06/25/25 15:17) Hives latex (LATEX) Allergy (Intermediate, Verified 06/25/25 15:17) RASH Penicillins (PENICILLINS) Allergy (Intermediate, Verified 06/25/25 15:17) RASH Sulfa (Sulfonamide Antibiotics) (SULFA (SULFONAMIDE ANTIBIOTICS)) Allergy (Intermediate, Verified 06/25/25 15:17) RASH, hives sulfite Allergy (Intermediate, Verified 06/25/25 15:17) Hives epinephrine (EPINEPHRINE) Adverse Reaction (Intermediate, Verified 06/25/25 15:17) w/novacaine (for dental work)-vomiting lactose Adverse Reaction (Intermediate, Verified 06/25/25 15:17) sinus infection Aquacell Dressing Allergy (Uncoded 06/25/25 15:17) blistering HPI HPI Est Patient- EMG review: Details: Jes is a 59 year old right hand dominant woman who presents today for an EMG Review due to her pain and weakness in the median nerve distribution of the left hand and wrist. Patient reports today she does not have any numbness or tingling. Patient states that she is still sore, but that her pain has improved since previous evaluation. IMPRESSION 05/22/25: 1. This is a normal nerve conduction study. 2. There is no electrodiagnostic evidence for median neuropathy or ulnar neuropathy. [facility] Medical History Anesthesia complication Arthritis COVID-19 vaccine series completed GERD (gastroesophageal reflux disease) HTN (hypertension) Migraines Obesity Surgical History H/O vein stripping (06/15/21) Hx laparoscopic cholecystectomy History of esophagogastroduodenoscopy (EGD) History of hysterectomy History of left knee replacement Social History Household Members: Significant Other and Family Housing: House Are you a primary healthcare associate to a significant other at home: No Do you presently have visiting nurse or other home services: No Patient Tobacco Use Status: Former Tobacco user Tobacco use type: Cigarette Second Hand Smoke Exposure: No service: No Current occupational status: employed 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 Vascular: Capillary refill brisk. ROM: Patient can make a fist and extend all their digits. Skin: No lacerations or abrasions noted. General: No ecchymosis. No erythema or evidence of infection. Assessment & Plan Assessment & Plan (1) Left hand pain: Code(s): M79.642 - Pain in left hand Category: Medical (2) Weakness of left hand: Code(s): R29.898 - Other symptoms and signs involving the musculoskeletal system Category: Medical Plan 1. Pain and weakness in the median nerve distribution of the left hand and wrist Patient is educated about this condition Patient is educated about the typical recovery course Negative EMG No acute surgical intervention indicated at this time Patient is referred to occupational therapy for range of motion and strengthening of the left hand in the setting of pain and weakness with a negative EMG Patient understands this and is amenable to this plan Follow-up in 6-8 weeks if OT has not been helpful, sooner with any acute concerns Orders: Orders OT Evaluation and Treatment Today M79.642 - Pain in left hand, R29.898 - Other symptoms and signs involving the musculoskeletal system Coding Level of Care Code Est Pt Level 3 (73755) Diagnoses Left hand pain M79.642 Weakness of left hand R29.898
--- OUTSIDE RECORDS SUMMARY | 2025-06-25 18:46 | XMS_ITS | Encounter Summary ---
Author Organization [facility] Address [address] [facility] [address] [place] [address] Phone Care Team Providers Care Food Broker Name Role Phone Brent Merrill MD Primary Care Provider [phone] Aurelio Correa MD Unavailable [phone] Encounter Details Date Type Department Care Team (Late st Contact Info) Description 11/05/2021 Ancillary Orders [facility],Outside Imaging [address] [place] [address] System, Provider Not In, PhD Partners [address] [address] Social History Tobacco Use Types Packs/Day Years [...] high school, GED, job training, learning the Welsh language, technical skills, or developing parenting skills)? 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 Not on file N ot on file [employer] Not on file Not on file Not on file documented as of this encounter Plan of Treatment Upcoming Encounters Date Type Department Care Team (Late st Contact Info) Description 08/28/2025 10:00 AM EST Office Visit [facility] General Surgical Care [address] [place] [address] Lianna Brown, JOSE 15 [facility], 2nd [place] [address] 10/08/2025 9:30 AM EDT Office Visit [facility] Family Medicine [address] [place] [place] [address] Brent Merrill MD 22 [facility], [address] [place] [address] documented as of this encounter Results * [...] documented as of this encounter Care Teams Food Broker Relationship Specialty Start Date End Date Brent Merrill MD [address] [place] [address], [address] [place] [address] PCP - General Internal Medicine 09/24/20 Aurelio Correa MD [address] [place] [address] [place] [address] Orthopedic Surgery 04/28/22 documented as of this encounter Additional Source Comments The information contained in this document represents components of the legal health record. It is not the complete legal health record.[facility]
--- OUTSIDE RECORDS SUMMARY | 2025-06-25 18:46 | XMS_ITS | Encounter Summary ---
Author Organization [facility] Address [address] [place] [address] [address] [place] [address] Phone Care Team Providers Care Oracle Manufacturing Consultant Name Role Phone Brent Merrill MD Primary Care Provider [phone] Aurelio Correa MD Unavailable [phone] Encounter Details Date Type Department Care Team (Latest Contact Info) Description 10/29/2021 Transcribe Orders Virtual Department [address] [place] [address] Brent Merrill MD 22 [facility], [address] [place] [address] [email or web address] Breast screening (Primary Dx) Social [...] high school, GED, job training, learning the Uzbek language, technical skills, or developing parenting skills)? [...] Description 08/28/2025 10:00 AM EST Office Visit [facility] General Surgical Care [address] [place] [address] Lianna Brown, JOSE 15 [facility], 2nd [place] [address] 10/08/2025 9:30 AM EDT Office Visit [facility] [place] [address] Brent Merrill MD 22 [facility], [address] [place] [address] documented as of this encounter Results * [...] Negative. DENSITY: There are scattered fibroglandular densities. Brent Merrill MD IMG MG EXAMS Final [...] documented as of this encounter Care Teams Oracle Manufacturing Consultant Relationship Specialty Start Date End Date Brent Merrill MD [address] [place] [address] [address] [place] [address] [email or web address] PCP - General Internal Medicine 09/24/20 Aurelio Correa MD [address] [place] [address] [place] [address] Orthopedic Surgery 04/28/22 documented as of this encounter Additional Source Comments The information contained in this document represents components of the legal health record. It is not the complete legal health record.[facility]
--- OUTSIDE RECORDS SUMMARY | 2025-06-25 18:46 | XMS_ITS | Patient Health Record ---
Author Organization [facility] Address [address] [place] [address] Care Team Providers Care Stationary Steam Engineer Name Role Phone Han aGrcia Primary Care Provider UnavailBrendon Combs Unavailable [phone] Reason For Referral No Information Plan Of Treatment No Information Insurance Providers Payer Name Payer Address Payer Phone Subscriber Number Group Number Insured Name Patient Relationship to Insured Coverage Start Date Coverage End Date [facility] [address] [place] [phone] [id number] LUANNE OLGUIN Self - patient is the insured
--- OUTSIDE RECORDS SUMMARY | 2025-06-25 18:46 | XMS_ITS | Encounter Summary ---
Author Organization [facility] Address [address] [facility] [address] [place] [address] Phone Care Team Providers Care Auto Refinisher Name Role Phone Brent Merrill MD Primary Care Provider [phone] Aurelio Correa MD Unavailable [phone] Encounter Details Date Type Department Care Team (Late st Contact Info) Description 02/21/2024 Procedure Pass [facility], [facility] [address] [place] [address] Social History Tobacco Use Types Packs/Day Years [...] high school, GED, job training, learning the [place] language, technical skills, or developing parenting skills)? [...] 10:00 AM EST Office Visit [facility] General Surgical Care [address] [place] [address] Lianna Brown, SUPERVISOR STAGE CARPENTRY 15 [facility], 2nd [place] [address] 10/08/2025 9:30 AM EDT Office Visit [facility] Medicine [address] [place] [address] [place] [address] Brent Merrill MD [address] [place] [address], [address] [place] [address] documented as of this encounter Visit Diagnoses Not on filedocumented in this encounter Additional Health Concerns Infection Onset Date Last Indicated Resolved Time CoV-Risk 11/02/2024 11/02/2024 11/13/2024 1:23 AM EDT Assessment Noted Time PHQ-2 Depression Total Score: 0 08/09/19 8:10 AM EST documented as of this encounter Care Teams Auto Refinisher Relationship Specialty Start Date End Date Brent Merrill MD [address] [place] [address], [address] [place] [address] PCP - General Internal Medicine 09/24/20 Aurelio Correa MD [address] [place] [address] [place] [address] Orthopedic Surgery 04/28/22 documented as of this encounter Additional Source Comments The information contained in this document represents components of the legal health record. It is not the complete legal health record.[facility]
--- OUTSIDE RECORDS SUMMARY | 2025-06-25 18:46 | XMS_ITS | Encounter Summary ---
Author Organization [facility] Address [address] [facility] [address] [place] [address] Phone Care Team Providers Care Hide Inspector Name Role Phone Brent Merrill MD Primary Care Provider [phone] Aurelio Correa MD Unavailable [phone] Encounter Details Date Type Department Care Team (Late st Contact Info) Description 10/29/2021 Procedure Pass [facility], [facility] [address] [place] [address] Social History Tobacco Use Types Packs/Day Years [...] high school, GED, job training, learning the Sudanese language, technical skills, or developing parenting [...] Description 08/28/2025 10:00 AM EST Office Visit [facility] General Surgical Care [address] [place] [address] Lianna Brown, JOSE 15 [facility], 2nd [place] [address] 10/08/2025 9:30 AM EDT Office Visit [facility] Family Medicine [address] [place] [address] Brent Merrill MD 22 [facility], [address] [place] [address] documented as of this encounter Visit Diagnoses Not on filedocumented in this encounter Additional Health Concerns Infection Onset Date Last Indicated Resolved Time CoV-Risk 12/07/2022 12/07/2022 12/18/2022 1:25 AM EDT COVID-19 06/01/2023 06/01/2023 06/22/2023 1:21 AM EST CoV-Risk 11/02/2024 11/02/2024 11/13/2024 1:23 AM EDT Assessment Noted Time PHQ-2 Depression Total Score: 0 01/20/20 10:30 AM EDT documented as of this encounter Care Teams Hide Inspector Relationship Specialty Start Date End Date Brent Merrill MD [address] [place] [address], [address] [place] [address] PCP - General Internal Medicine 09/24/20 Aurelio Correa MD [address] [place] [address] [place] [address] Orthopedic Surgery 04/28/22 documented as of this encounter Additional Source Comments The information contained in this document represents components of the legal health record. It is not the complete legal health record.[facility]
--- OUTSIDE RECORDS SUMMARY | 2025-06-25 18:46 | XMS_ITS | Clinical Summary ---
Author Organization [facility] Address [address] [place] [address] Phone Care Team Providers Care Club Director Name Role Phone Brent Merrill MD Primary Care Provider [phone] Aurelio Correa MD Unavailable Allergies Active Allergy Reactions Criticality Noted Date [...] 0-10 scale). Every 6-8 hours as needed. 2 Active lisinopril (PRINIVIL,ZESTRIL ) 5 MG tabletIndications :Essential hypertension Take 1 tablet (5 mg total) by mouth daily. 90 tablet 3 5 Active estradiol-norethi ndrone (COMBIPATCH) 0.05-0.14 mg/24 hrIndications:Men opausal vasomotor syndrome Place 1 patch onto the skin 2 (two) times a week. 28 patch 3 5 Active therapeutic multivitamin tablet Take 1 tablet by mouth daily. Active cyanocobalamin, vitamin B-12, 1000 MCG tablet Take 1,000 mcg by mouth daily. Active semaglutide, weight loss, (WEGOVY) 1 mg/0.5 mL subcutaneous injectionIndicati ons:Class 3 severe obesity with serious comorbidity and body mass index (BMI) of 40.0 to 44.9 in adult, unspecified obesity type Inject 0.5 mL (1 mg total) under the skin every 7 days. 2 mL 5 Active enoxaparin (LOVENOX) 40 mg/0.4 mL Syrg subcutaneous syringe Inject 0.4 mL under the skin daily. 2 06/14/20 22 Discontinu ed(No longer taking) semaglutide, weight loss, (WEGOVY) 1 mg/0.5 mL subcutaneous injectionIndicati ons:Class 3 severe obesity with serious comorbidity and body mass index (BMI) of 40.0 to 44.9 in adult, unspecified obesity type Inject 0.5 mL (1 mg total) under the skin every 7 days. 2 mL 5 05/28/20 25 Discontinu ed(Reorder ) Active Problems Problem Noted Date Diagnosed Date [...] will schedule follow-up appointment with vascular at [facility]. Class 3 severe obesity with serious comorbidity and body mass index (BMI) of 40.0 to 44.9 in adult 01/22/2021 Overview (03/12/2025): WHO class 3, AACE 0 Assessment & Plan (05/08/2025 10:24 AM EDT): Increase Wegovy to 1 mg. Continue to add more strength training. She is doing a good job with diet. She has a follow-up with [facility] and she will follow-up with me in [...] obesity medicine and work with a registered appraiser. We will continue monitoring the patient's clinical [...] spring or summer after she returns from [facility]. She will follow-up as planned with orthopedics [...] Description 05/08/2025 10:15 AM EDT Office Visit [facility] General Surgical Care [address] [place] [address] [place] [address] Lianna Brown, JOSE Class 3 severe obesity with serious comorbidity and body mass index (BMI) of 40.0 to 44.9 in adult, unspecified obesity type (Primary Dx) 04/10/2025 10:00 AM EDT Nutrition [facility] General Surgical Care [address] [place] [address] Suzy Finney LDN Morbid obesity with BMI of 40.0-44.9, adult (Primary Dx) from Last 3 Months [...] high school, GED, job training, learning the Latvian language, technical skills, or developing parenting skills)? [...] Description 08/28/2025 10:00 AM EST Office Visit [facility] General Surgical Care [address] [place] [address] Lianna Brown, JOSE 15 [facility], 2nd [place] [address] [email or web address] 10/08/2025 9:30 AM EDT Office Visit [facility] Family Medicine [address] [place] [address] Brent Merrill MD 22 [facility], [address] [place] [address] [email or web address] Health [email or web address] Due Date Last Done Comments [...] Name Priority Date/Time Associated Diagnosis Comments COLOGUARD (QD Vision) (NON-MGB) Routine 04/29/2025 10:00 AM EDT LIPID PANEL Routine 03/15/2025 7:40 AM EDT Class 3 severe obesity with serious comorbidity and body mass index (BMI) of 40.0 to 44.9 in adult COMPREHENSIVE METABOLIC PANEL (CMP) Routine 03/15/2025 7:40 AM EDT Class 3 [...] Relevant to Health Maintenance Results * COLOGUARD (QD Vision) (04/29/2025 10:00 AM EDT) Cologuard Results Negative Negative 025 3:46 PM EDT [facility] (CLIA #:[id number]) Comment: The Cologuard (TM) test was performed [...] screened with both Cologuard and colonoscopy. (Will Dorsey, N Engl J Med 2014;370(14):1286- 1297) The normal value (reference range) for this assay is negative. COLOGUARD RE-SCREENING RECOMMENDATION: Periodic colorectal cancer screening is an important part of preventive healthcare for asymptomatic individuals at average risk for colorectal cancer. Following a negative Cologuard result, the [employer] [place] [employer] and U.S. Multi-Society Task Force screening guidelines recommend a Cologuard re-screening interval of 3 years. References: [employer] [place] [employer] Guideline for Colorectal Cancer Screening: https://www.cancer.org/cancer/ceyqn-qdlhml-jhmday/kjgafmtrz-qzhrlueha-iyhzlsd/ac s-rec ommendations.html.; Grayson DK, Alban WILKINSON, Willem BlountK, Colorectal Cancer Screening: Recommendations for Physicians and Patients from the U.S. Multi-Society Task Force on Colorectal Cancer Screening , Am J Gastroenterology 2017; 112:5104-2772. TEST DESCRIPTION: Composite algorithmic analysis of stool [...] screened with both Cologuard and colonoscopy. (Will Dorsey, N Engl J Med 2014;370(14):6853-2506.) Cologuard may produce a false negative or false positive result (no colorectal cancer or precancerous polyp present at colonoscopy follow up). A negative Cologuard test result does not guarantee the absence of CRC or advanced adenoma (pre-cancer). The current Cologuard screening interval is every 3 years. ([employer] [place] [employer] and U.S. Multi-Society Task Force). Cologuard performance data in a 10,000 patient pivotal study using colonoscopy as the reference method can be accessed at the following location: www.[employer].mascotsecret/results. Additional description of the Cologuard test process, warnings and precautions can be found at www.[employer].com. Stool (Per Rectum) 04/29/2025 10:00 AM EDT 04/30/2025 10:41 AM EDT us Brent Merrill MD BODY FLUIDS AND STOOLS ORD ERABLES Final Result [facility] (CLIA #:[id number]) [address] [place], [place] [address] [phone] * (ABNORMAL) Comprehensive metabolic panel (03/15/2025 7:40 AM EDT) SODIUM 139 133 - 146 mmol/L [facility] POTASSIUM 3.9 3.3 - 5.1 mmol/L [facility] CHLORIDE 104 96 - 108 mmol/L [facility] CO2 21 21 - 35 mmol/L [facility] BUN 13 6 - 19 mg/dL [facility] CREATININE 0.60 0.5 - 1.5 mg/dL [facility] GLUCOSE 106(H) 70 - 99 mg/dL [facility] ALBUMIN 4.3 3.9 - 4.8 g/dL [facility] TOTAL PROTEIN 7.4 6.5 - 8.0 g/dL [facility] CALCIUM 9.4 8.4 - 10.3 mg/dL [facility] ALKALINE PHOSPHATASE 79 39 - 117 U/L [facility] TOTAL BILIRUBIN 0.6 0.0 - 1.2 mg/dL [facility] AST 19 0 - 37 U/L [facility] ALT 20 0 - 40 U/L [facility] GLOBULIN 3.1 1 - 4.8 g/dL [facility] EGFR 105 >59 mL/min/1.7 3m2 [facility] Comment:Estimated glomerular filtration rate calculated using the CKD-EPI refit equation. ANION GAP 18 10 - 20 mmol/L [facility] Blood 03/15/2025 7:40 AM EDT 03/15/2025 7:47 AM EDT [facility] ORDERABLES F inal Result Performing Organization Address [facility] Co de Phone Number [address] [address] * (ABNORMAL) Lipid panel (03/15/2025 7:40 AM EDT) HDL 69 mg/dL [facility] Comment: Interpretation <40 mg/dL: Low HDL cholesterol (major risk factor for CHD) Greater than or equal to 60 mg/dL: High HDL cholesterol ( negative risk factor for CHD) HDL - cholesterol is affected by a number of factors, e.g. smoking, excerise, hormones, sex and age. CHOLESTEROL 164 0 - 240 mg/dL [facility] TRIGLYCERIDES 73 30 - 160 mg/dL [facility] LDL 80 50 - 129 mg/dL [facility] Comment: LDL levels in terms of risk for coronary heart disease: <100 mg/dL: Optimal 100-129 mg/dL: Near or above optimal 130-159 mg/dL: Borderline high 160-189 mg/dL: High >190 mg/dL: Very High CARDIAC RISK RATIO 2.4(L) 3.3 - 4.4 [facility] Blood 03/15/2025 7:40 AM EDT 03/15/2025 7:46 AM EDT [facility] BLO[facility] BKR ORDERABLES F inal Result Performing Organization Address [facility] Co de Phone Number [address] [address] * BI MAMMOGRAM SCREENING WITH TOMOSYNTHESIS WITH [...] AM EDT) HCV NON-REACTIV E NON-REACTI VE [facility] Blood 01/26/2021 8:17 AM EDT 01/26/2021 8:29 AM EDT us Brent Merrill MD LAB BLOOD BKR ORDERABLES F inal Result [address] [address] from Last 3 Months or Most Recently Relevant to Health Maintenance Insurance [address] [place], [place] [address] [place] [address] [place] [address]O HMO HMO HMO Care Teams Club Director Relationship Specialty Start Date End Date Brent Merrill MD [address] [place] [address], [address] [place] [address] [email or web address] PCP - General Internal Medicine 09/24/20 Aurelio Correa MD [address] [place] [address] [place] [address] Orthopedic Surgery 04/28/22 Additional Source Comments The information contained in this document represents components of the legal health record. It is not the complete legal health record.[facility]
== END 2025-06-25 15:25 | disposition home or self-care (01) ==
LOC: HO.HOS 15:05
DX: M79.642 Pain in left hand (principal); R29.898 Other symptoms and signs involving the musculoskeletal system
CPT/HCPCS: 99213